=== PATIENT | male | born 1975 | race Caucasian/White ===

== ENCOUNTER 2024-01-07 17:11 | Inpatient (IN) ==
--- NOTE | 2024-01-07 17:31 | Emergency Department Note ---
Impression & Plan Stroke-like symptoms, Acute left-sided weakness, Chest pain, Sinus tachycardia ED Provider Note NAME: SAMMIE [id number] ZARINA AGE: 48 SEX: M : 1975 ARRIVES VIA: Ambulance INFORMANT: Patient, EMS ED PROVIDER(S): Mathew Dhillon DO CHIEF COMPLAINT: Strokelike symptoms HPI: The patient is a 48-year-old male who presented to the emergency department with strokelike symptoms. [facility] The patient went to take a nap at approximately noon today. He was in his normal state of health but he did state that he had somewhat of a headache. The patient also has chest pain that has had for many months. It is intermittent but he did notice he had chest pain on the left side today. The patient denies having any nausea or vomiting. He does complain of an allover headache but when he awoke from his nap he realized he had decreased sensation and weakness in his left side. The patient was seen at the [facility]. 911 was called. The patient arrived via ambulance. I did receive a prehospital notification about the patient. He was normotensive and tachycardic. He was treated with 4 baby aspirin per protocol prior to arrival. The patient states he has no change in his symptoms ROS: See above HPI for pertinent positives & negatives. A total of 10 systems reviewed and were otherwise negative. PAST MEDICAL HISTORY: See Below PAST SURGICAL HISTORY: See Below FAMILY HISTORY: See Below SOCIAL HISTORY: See Below HOME MEDICATIONS: See Below ALLERGIES: See Below VITALS: See Below PHYSICAL EXAMINATION: GENERAL: Patient is awake alert in no acute distress patient is resting comfortably and showing no signs of anxiety EYES: The conjunctivae are clear. The pupils are round and reactive. EARS, NOSE, MOUTH AND THROAT: The nose is without any evidence of any deformity. NECK: The neck is nontender and supple. RESPIRATORY: Normal respiratory effort is noted there is no evidence of wheezing rhonchi or rales CARDIOVASCULAR: Regular rate and rhythm noted there no murmurs rubs or gallops normal S1 normal S2. GASTROINTESTINAL: The abdomen is soft. Abdomen is nontender. MUSCULOSKELETAL/EXTREMITIES: There is no evidence of gross deformity full range of motion is noted in the hips and shoulders. SKIN: There is no obvious evidence of any rash. There are no petechiae, pallor or cyanosis noted. NEUROLOGIC: Patient is awake alert and oriented x3. Speech was clear. There was a left-sided facial droop which seems to involve the left side of the forehead. Outboard System Operator strength was diminished in the left hand compared to the right. The patient is unable to lift the left leg off the bed. The patient describes decreased sensation in the left side including left upper and lower extremities. MEDICAL DECISION MAKING: The patient is a 48-year-old male who presented to the emergency department for an evaluation of strokelike symptoms. [facility] His last known well time was initially reported as 3 PM however the patient states he went to his room to take a nap at around noon. The patient complained of headache as well as chest pain. His exam was consistent with left-sided weakness however his exam was somewhat intermittent and the patient was felt to have waxing and waning of symptoms. It is unclear if the patient was fully compliant with the exam. I discussed the patient's laboratory and radiographic studies with him. The patient was evaluated by the [facility] neurologist with [facility]. I [facility] the [facility]'s [facility]. They have agreed to evaluate the patient in the emergency department for further management and disposition. Triage Nursing notes reviewed. Prior medical records reviewed Vital Signs: reviewed and remarkable for sinus tachycardia. Differential diagnosis: Infection, dehydration, metabolic abnormality, hypo/hyperglycemia, electrolyte disturbance, anemia, hypoxia, cardiac sources, intracerebral event, toxicologic, neurologic, as well as other pathologies. ER treatment provided: See below Diagnostics interpreted by me: ECG: EKG was obtained in the emergency department. My interpretation is sinus tachycardia 127 bpm. There is no ectopy. Nonspecific ST segment abnormalities are noted. This was compared to a tracing from January 18, 2024. No changes were noted Cardiac Monitoring: An order was placed for continuous cardiac monitoring. The monitor shows a rate of 110 bpm with sinus tachycardia Laboratory studies: As stated above and show below. Imaging studies: See below. Radiographic imaging was reviewed by myself Consultation(s): I discussed this case with Dr. Henry who is on for [facility]. I discussed this case with Dr. Samuel who is [facility] ED COURSE: Procedures: none Critical Care: I have personally spent greater than 45 minutes of critical care time in the direct management of this patient. This includes bedside care, interpretation of diagnostic studies, and testing, discussion with consultants, patient, and family members, and other required patient management activities. This 45 minutes is in excess of all separately billable procedures. Past Med/Surg History Medical History COPD (chronic obstructive pulmonary disease) Social History Smoking Status: Never smoker Preferred Language: Citizen Of [place] Feels Safe at Home: Yes Allergies Allergies Allergy/AdvReac Type Severity Reaction Status Date / Time aripiprazole [From Abilify] Allergy Unknown ON SCI Verified 01/07/24 19:09 [facility] pollen extracts Allergy Unknown ON SCI Verified 01/07/24 19:09 [facility] MED LIST Home Meds Home Medications Medication Instructions Recorded Confirmed metoprolol tartrate 25 mg tablet 25 mg PO DAILY 10/26/23 01/07/24 hydroxyzine pamoate 50 mg capsule 50 mg PO BID 10/27/23 01/07/24 levalbuterol tartrate 45 2 inh inhalation QID PRN Shortness 12/19/23 01/07/24 mcg/actuation aerosol inhaler Of Breath Or Wheezing (Xopenex HFA) lisinopril 10 mg tablet 10 mg PO DAILY 12/19/23 01/07/24 pregabalin 150 mg capsule (Lyrica) 150 mg PO BID 12/19/23 01/07/24 terbinafine HCl 1 % topical cream 1 applic topical BID 12/19/23 01/07/24 trazodone 100 mg tablet 100 mg PO HS 12/19/23 01/07/24 venlafaxine 150 mg 150 mg PO DAILY 12/19/23 01/07/24 capsule,extended release 24 hr (Effexor XR) Fluticasone Nasal Spr 0.05% 1 spray intranasal BID 01/07/24 01/07/24 fluticasone 500 mcg-salmeterol 50 1 inh inhalation BID 01/07/24 01/07/24 mcg/dose blistr powdr for inhalation (Wixela Inhub) Results & Data (ED) Vital Signs Vital Signs - 24 hr 01/07/24 17:29 01/07/24 17:30 01/07/24 17:30 Temperature Temperature Source Pulse Rate 130 H 130 H Pulse Rate [Apical] Pulse Rate from SpO2 Sensor 130 H Respiratory Rate 21 Blood Pressure 127/65 Blood Pressure [Right Arm] Blood Pressure Mean 76 Blood Pressure Mean [Right Arm] Pulse Oximetry 95 Oxygen Delivery Method Sepsis Recent Fever Within 48 Hours Sepsis New/Unexplained Change in Mental Status Sepsis Action Taken by Nursing 01/07/24 17:31 01/07/24 17:34 01/07/24 17:34 Temperature 36.7 C Temperature Source Oral Pulse Rate 130 H 126 H Pulse Rate [Apical] Pulse Rate from SpO2 Sensor Respiratory Rate 24 Blood Pressure 127/65 Blood Pressure [Right Arm] Blood Pressure Mean 85 Blood Pressure Mean [Right Arm] Pulse Oximetry 96 Oxygen Delivery Method Room Air Room Air Sepsis Recent Fever Within 48 Hours No Sepsis New/Unexplained Change in Mental Status No Sepsis Action Taken by Nursing Physician Notified 01/07/24 17:40 01/07/24 17:47 01/07/24 17:47 Temperature Temperature Source Pulse Rate 124 H 123 H Pulse Rate [Apical] Pulse Rate from SpO2 Sensor 125 H 124 H Respiratory Rate 19 24 Blood Pressure 115/65 Blood Pressure [Right Arm] Blood Pressure Mean 73 Blood Pressure Mean [Right Arm] Pulse Oximetry 95 97 Oxygen Delivery Method Sepsis Recent Fever Within 48 Hours Sepsis New/Unexplained Change in Mental Status Sepsis Action Taken by Nursing 01/07/24 17:50 01/07/24 17:52 01/07/24 18:00 Temperature Temperature Source Pulse Rate 123 H Pulse Rate [Apical] 121 H Pulse Rate from SpO2 Sensor 124 H Respiratory Rate 18 18 Blood Pressure 109/67 Blood Pressure [Right Arm] 115/65 Blood Pressure Mean 85 Blood Pressure Mean [Right Arm] 81 Pulse Oximetry 95 95 Oxygen Delivery Method Room Air Sepsis Recent Fever Within 48 Hours Sepsis New/Unexplained Change in Mental Status Sepsis Action Taken by Nursing 01/07/24 18:00 01/07/24 18:10 01/07/24 18:15 Temperature Temperature Source Pulse Rate 121 H 120 H Pulse Rate [Apical] Pulse Rate from SpO2 Sensor 121 H 120 H Respiratory Rate 21 Blood Pressure 107/72 Blood Pressure [Right Arm] Blood Pressure Mean 95 Blood Pressure Mean [Right Arm] Pulse Oximetry 93 94 Oxygen Delivery Method Sepsis Recent Fever Within 48 Hours Sepsis New/Unexplained Change in Mental Status Sepsis Action Taken by Nursing 01/07/24 18:15 01/07/24 18:20 01/07/24 18:30 Temperature Temperature Source Pulse Rate 122 H 122 H Pulse Rate [Apical] Pulse Rate from SpO2 Sensor 122 H 122 H Respiratory Rate 21 24 Blood Pressure 119/74 Blood Pressure [Right Arm] Blood Pressure Mean 83 Blood Pressure Mean [Right Arm] Pulse Oximetry 95 97 Oxygen Delivery Method Sepsis Recent Fever Within 48 Hours Sepsis New/Unexplained Change in Mental Status Sepsis Action Taken by Nursing 01/07/24 18:30 01/07/24 18:40 Temperature Temperature Source Pulse Rate 116 H 116 H Pulse Rate [Apical] Pulse Rate from SpO2 Sensor 116 H 117 H Respiratory Rate 17 15 Blood Pressure Blood Pressure [Right Arm] Blood Pressure Mean Blood Pressure Mean [Right Arm] Pulse Oximetry 94 95 Oxygen Delivery Method Sepsis Recent Fever Within 48 Hours Sepsis New/Unexplained Change in Mental Status Sepsis Action Taken by Custodial Medications Current Medication List: was personally reviewed by me Laboratory Data Attestation: I reviewed the patient's lab results. 01/07/24 20:47 01/07/24 17:31 Lab Results 01/07/24 01/07/24 01/07/24 Range/Units 17:31 17:35 17:40 WBC 10.44 (4.8-10.8) K/ul RBC 4.75 (4.70-6.10) M/uL Hgb 13.6 L (14.0-18.0) g/dl POC Hgb 13.6 L (14.0-18.0) g/dl Hct 41.6 L (42.0-52.0) % POC Hct 40 L (42-52) % MCV 87.6 (80.0-100.0) fL MCH 28.6 (25.0-34.0) pg MCHC 32.7 (32.0-36.0) g/dL RDW Std Deviation 41.4 (36.4-46.3) fL RDW Coeff of Boris 12.9 (11.5-14.5) % Plt Count 258 (130-400) K/uL MPV 9.4 (9.4-12.4) fL Immature Gran % (Auto) 0.6 % Neut % (Auto) 91.1 % Lymph % (Auto) 2.5 % [facility] % (Auto) 5.6 % Eos % (Auto) 0.0 % Baso % (Auto) 0.2 % Reticulocyte % (Auto) (0.50-2.00) % Neut # (Auto) 9.52 H (1.40-6.50) K/uL Lymph # (Auto) 0.26 L (1.20-3.40) K/uL [facility] # (Auto) 0.58 (0.11-0.59) K/uL Eos # (Auto) 0.00 (0.00-0.50) K/uL Baso # (Auto) 0.02 (0.00-0.20) K/uL Reticulocyte # (0.020-0.100) 10^6/uL Immature Gran # (Auto) 0.06 (0.01-0.20) K/uL PT 11.4 (9.0-12.0) Seconds INR 1.0 (0.9-1.1) APTT 26 (21-31) Seconds PTT Ratio 0.9 POC Sodium 141 (135-144) mmol/L Sodium 139 (136-145) mmol/L POC Potassium 3.4 (3.3-5.0) mmol/L Potassium 3.4 L (3.5-5.1) mmol/L POC Chloride 103 (101-112) mmol/L Chloride 106 (98-107) mmol/L Carbon Dioxide 21 (21-32) mmol/L POC Total CO2 20 L (24-31) mmol/L Anion Gap 12 H (3-11) POC Anion Gap 23.0 (16-25) mmol/L POC BUN 11 (7-18) mg/dl BUN 13 (6-23) mg/dl Creatinine 1.24 (0.6-1.4) mg/dl POC Creatinine 1.2 (0.6-1.3) mg/dl Est Cr Clr Drug Dosing 92.9 ml/min Est GFR ( Amer) 80.3 ml/min Est GFR (Non-Af Amer) 69.3 ml/min BUN/Creatinine Ratio 10.5 (10-20) Glucose 129 H (70-99(Fasting)) mg/dl POC Glucose 122 H (70-99) mg/dl POC Glucose (other) 122 H (70-99) mg/dl Estimat Average Glucose 123 mg/dl Hemoglobin A1c 5.9 H (4.5-5.6) % Lactate (0.4-2.0) mmol/L Calcium 8.8 (8.6-10.3) mg/dl POC Ioniz Calcium Dez 1.18 (1.12-1.32) mmol/l Magnesium 1.8 (1.7-2.4) mg/dl Iron (35-175) mcg/dl Transferrin (200-360) mg/dl Ferritin (8-388) ng/ml Total Bilirubin 0.3 (0.2-1.0) mg/dl AST 14 (13-39) U/L ALT 23 (7-52) U/L Alkaline Phosphatase 63 (34-104) U/L Troponin I High Sens 8.9 (0-20) pg/ml Total Protein 6.2 (6.0-8.3) gm/dl Albumin 3.9 (3.4-5.0) gm/dl Globulin 2.3 L (2.5-4.0) gm/dl Albumin/Globulin Ratio 1.7 (0.9-2) Vitamin B12 (180-914) pg/ml Folate (>5.38) ng/ml TSH 0.316 (0.300-4.500) uIu/ml 01/07/24 Range/Units 20:47 WBC (4.8-10.8) K/ul RBC (4.70-6.10) M/uL Hgb 13.3 L (14.0-18.0) g/dl POC Hgb (14.0-18.0) g/dl Hct 39.4 L (42.0-52.0) % POC Hct (42-52) % MCV (80.0-100.0) fL MCH (25.0-34.0) pg MCHC (32.0-36.0) g/dL RDW Std Deviation (36.4-46.3) fL RDW Coeff of Boris (11.5-14.5) % Plt Count (130-400) K/uL MPV (9.4-12.4) fL Immature Gran % (Auto) % Neut % (Auto) % Lymph % (Auto) % [facility]. [facility] % (Auto) % Eos % (Auto) % Baso % (Auto) % Reticulocyte % (Auto) 1.60 (0.50-2.00) % Neut # (Auto) (1.40-6.50) K/uL Lymph # (Auto) (1.20-3.40) K/uL [facility] # (Auto) (0.11-0.59) K/uL Eos # (Auto) (0.00-0.50) K/uL Baso # (Auto) (0.00-0.20) K/uL Reticulocyte # 0.070 (0.020-0.100) 10^6/uL Immature Gran # (Auto) (0.01-0.20) K/uL PT (9.0-12.0) Seconds INR (0.9-1.1) APTT (21-31) Seconds PTT Ratio POC Sodium (135-144) mmol/L Sodium (136-145) mmol/L POC Potassium (3.3-5.0) mmol/L Potassium (3.5-5.1) mmol/L POC Chloride (101-112) mmol/L Chloride (98-107) mmol/L Carbon Dioxide (21-32) mmol/L POC Total CO2 (24-31) mmol/L Anion Gap (3-11) POC Anion Gap (16-25) mmol/L POC BUN (7-18) mg/dl BUN (6-23) mg/dl Creatinine (0.6-1.4) mg/dl POC Creatinine (0.6-1.3) mg/dl Est Cr Clr Drug Dosing ml/min Est GFR ( Amer) ml/min Est GFR (Non-Af Amer) ml/min BUN/Creatinine Ratio (10-20) Glucose (70-99(Fasting)) mg/dl POC Glucose (70-99) mg/dl POC Glucose (other) (70-99) mg/dl Estimat Average Glucose mg/dl Hemoglobin A1c (4.5-5.6) % Lactate 4.1 H* (0.4-2.0) mmol/L Calcium (8.6-10.3) mg/dl POC Ioniz Calcium Dez (1.12-1.32) mmol/l Magnesium (1.7-2.4) mg/dl Iron 33 L (35-175) mcg/dl Transferrin 213 (200-360) mg/dl Ferritin 103.2 (8-388) ng/ml Total Bilirubin (0.2-1.0) mg/dl AST (13-39) U/L ALT (7-52) U/L Alkaline Phosphatase (34-104) U/L Troponin I High Sens (0-20) pg/ml Total Protein (6.0-8.3) gm/dl Albumin (3.4-5.0) gm/dl Globulin (2.5-4.0) gm/dl Albumin/Globulin Ratio (0.9-2) Vitamin B12 193 (180-914) pg/ml Folate > 22.30 (>5.38) ng/ml TSH (0.300-4.500) uIu/ml Administered Medications Discontinued Medications Acetaminophen (Acetaminophen 1000 Mg/100 Ml Iv) Confirm Administered Dose 1,000 mg IV .STK-MED ONE Stop: 01/07/24 17:48 Last Admin: 01/07/24 18:01 Dose: Not Given Documented By: KT Acetaminophen (Ofirmev) 1,000 mg in 100 mls @ 400 mls/hr IV NOW STA Stop: 01/07/24 18:09 Last Infusion: 01/07/24 18:38 Dose: Infused Documented By: Admin: 01/07/24 18:00 Dose: 400 mls/hr Documented By: KT Sodium Chloride (Nss) 1,000 mls @ 999 mls/hr IV .Q1H1M ONE Stop: 01/07/24 19:32 Last Infusion: 01/07/24 19:50 Dose: Infused Documented By: Admin: 01/07/24 18:49 Dose: 999 mls/hr Documented By: KT Magnesium Sulfate/Dextrose (Magnesium Sulfate / D5w) 1 gm in 100 mls @ 50 mls/hr IV ONE ONE Stop: 01/07/24 21:38 Last Admin: 01/07/24 20:07 Dose: 50 mls/hr Documented By: HB Potassium Chloride/Sodium Chloride (Normal Saline W/20 Meq Kcl) 20 meq in 1,000 mls @ 200 mls/hr IV .Q5H ONE; Protocol Stop: 01/08/24 01:35 Last Admin: 01/07/24 21:46 Dose: Not Given Documented By: HB Potassium Chloride (Potassium Chloride Crtab 20 Meq Tabcr) 40 meq PO NOW STA Stop: 01/07/24 19:39 Last Admin: 01/07/24 20:07 Dose: 40 meq Documented By: HB Imaging Data Attestation: I personally reviewed and interpreted this imaging study as follows: My Impression: CT of the brain was obtained in the emergency department. My interpretation is no intracranial hemorrhage or mass effect, final report below. CT angiogram of the chest was obtained. My interpretation is no free air or signs of pulmonary infiltrate, final report below. Radiologist's Impression: Chest CTA 01/07/24 17:08 CT ANGIOGRAM OF THE CHEST CLINICAL HISTORY: Atypical chest pain. Stroke like symptoms. COMPARISON STUDY: Chest CT dated 12/19/2023. TECHNIQUE: Following the IV administration of 119 cc of Optiray 320, CT angiogram of the chest was performed from the thoracic inlet to the upper abdomen utilizing the dissection protocol. Images are reviewed in the axial, sagittal, and coronal planes. 3-D MIPS images are created and assessed. IV contrast was administered without complication. A dose lowering technique was utilized adhering to the principles of ALARA. There is streak artifact from the arms which could not be elevated above the chest. There is also motion artifact. FINDINGS: Thyroid: Imaged portions of the thyroid gland are normal in size and attenuation. Thoracic aorta: The thoracic aorta is normal in caliber and demonstrates standard 3-vessel arch anatomy. No dissection is seen. The arch vessels are widely patent. Pulmonary vasculature: The pulmonary trunk is normal in caliber. There is no evidence of pulmonary embolus in the main, lobar, or proximal segmental pulmonary arteries. Evaluation of the peripheral branches is significantly degraded by motion artifact. Heart: The heart is normal in size and without pericardial effusion. Lungs and pleural spaces: Evaluation of the lung parenchyma is degraded by motion artifact. There is dependent atelectasis. No airspace consolidation or pleural effusion is identified. A 4 mm right middle lobe pulmonary nodule on image #88 and 3 mm left basilar nodules on images #82 and #85 are unchanged. Mediastinum: There are numerous mildly enlarged mediastinal lymph nodes which measure up to 11 mm short axis. These are similar to previous. Nataly: Mildly enlarged hilar nodes are unchanged and measure up to 14 mm in short axis. Axillae: There is no axillary lymphadenopathy. Upper abdomen: There is a small hiatal hernia. A 1.8 cm cyst is noted in the right hepatic lobe. The liver appears steatotic. Skeletal structures: No lytic or blastic bony lesions are seen. There are numerous chronic/healed right posterior rib fractures. There are subacute appearing left lateral rib fractures. IMPRESSION: 1. Normal CT angiogram of the thoracic aorta. 2. There is no airspace consolidation or pleural effusion. 3. Hepatic steatosis. 4. Mildly enlarged mediastinal and hilar lymph nodes are nonspecific and similar to previous. 5. Additional findings as above. ACT 112: Negative or not required by law. Electronically signed by: Hunter Bowden M.D. 01/07/2024 6:[address] 01/07/24 17:[address] OF THE BRAIN; CT ANGIOGRAM OF THE BRAIN; CT ANGIOGRAM OF THE NECK CLINICAL HISTORY: Neurological deficit. Stroke like symptoms. COMPARISON STUDY: No priors. TECHNIQUE: Unenhanced axial CT scan of the brain is performed. Subsequently, following the IV administration of 119 of Optiray 320, CT angiogram of the head and neck was performed from the aortic arch to the vertex. Images are reviewed in the axial, sagittal, and coronal planes. 3-D MIPS images are created and assessed. IV contrast was administered without complication. All measurements were calculated based on NASCET criteria. A dose lowering technique was utilized adhering to the principles of ALARA. CT DOSE: 2037.25 mGy.cm FINDINGS: Brain parenchyma: There is a 12 mm chronic-appearing lacunar infarct centered in the left basal ganglia seen on image #11. There is no hemorrhage, mass effect, or evidence of acute territorial ischemia by CT criteria. There is no evidence of enhancing mass lesion on the angiogram phase images. The ventricles, sulci, and cisterns are normal in configuration. Roe-white matter differentiation is preserved. No extra-axial fluid collection is seen. Thoracic aorta: Visualized portions of the thoracic aorta are normal in caliber. The aortic arch demonstrates standard 3-vessel anatomy. Right carotid arterial system: The right common carotid artery is widely patent, as are the right internal and external carotid arteries. Left carotid arterial system: The left common carotid artery is widely patent, as are the left internal and external carotid arteries. Vertebral arteries: The vertebral arteries are widely patent bilaterally and mild left-sided dominance. Subclavian arteries: Widely patent bilaterally. Intracranial vasculature: The internal carotid arteries are patent at the skull base, as are the anterior and middle cerebral arteries bilaterally. The vertebrobasilar system and posterior cerebral arteries are widely patent. The left vertebral artery is dominant. There is a left posterior communicating artery. There is no aneurysm, high-grade stenosis, or focal vessel cut off seen throughout the intracranial circulation. Jugular veins: Patent bilaterally. Dural sinuses: Patent. Lung apices: Partially visualized upper lobe lung parenchyma appears clear. Soft tissues: The visualized pharyngeal soft tissues are normal in appearance noting angiographic phase technique. The oropharyngeal airway appears widely patent. The salivary and thyroid glands are normal in appearance. No cervical lymphadenopathy is seen. Skeletal structures: The calvarium appears intact. The cervical spine is maintained noting multilevel spondylosis. Orbits: The bony orbits are intact. Orbital contents are normal as visualized. Sinuses and mastoids: The paranasal sinuses are clear. The mastoid air cells are well pneumatized. IMPRESSION: 1. There is no hemorrhage, mass effect, or evidence of acute territorial ischemia by CT criteria. 2. There is a 12 mm chronic-appearing lacunar infarct centered in the left basal ganglia. Correlate with the neurological history. If warranted this could be further assessed with MRI. 3. Unremarkable CT angiogram of the brain. 4. Unremarkable CT angiogram of the neck. ACT 112: Negative or not required by law. Electronically signed by: Hunter Bowden M.D. 01/07/2024 5:45 PM Head CTA 01/07/24 17:[address] OF THE BRAIN; CT ANGIOGRAM OF THE BRAIN; CT ANGIOGRAM OF THE NECK CLINICAL HISTORY: Neurological deficit. Stroke like symptoms. COMPARISON STUDY: No priors. TECHNIQUE: Unenhanced axial CT scan of the brain is performed. Subsequently, following the IV administration of 119 of Optiray 320, CT angiogram of the head and neck was performed from the aortic arch to the vertex. Images are reviewed in the axial, sagittal, and coronal planes. 3-D MIPS images are created and assessed. IV contrast was administered without complication. All measurements were calculated based on NASCET criteria. A dose lowering technique was utilized adhering to the principles of ALARA. CT DOSE: 2037.25 mGy.cm FINDINGS: Brain parenchyma: There is a 12 mm chronic-appearing lacunar infarct centered in the left basal ganglia seen on image #11. There is no hemorrhage, mass effect, or evidence of acute territorial ischemia by CT criteria. There is no evidence of enhancing mass lesion on the angiogram phase images. The ventricles, sulci, and cisterns are normal in configuration. Roe-white matter differentiation is preserved. No extra-axial fluid collection is seen. Thoracic aorta: Visualized portions of the thoracic aorta are normal in caliber. The aortic arch demonstrates standard 3-vessel anatomy. Right carotid arterial system: The right common carotid artery is widely patent, as are the right internal and external carotid arteries. Left carotid arterial system: The left common carotid artery is widely patent, as are the left internal and external carotid arteries. Vertebral arteries: The vertebral arteries are widely patent bilaterally and mild left-sided dominance. Subclavian arteries: Widely patent bilaterally. Intracranial vasculature: The internal carotid arteries are patent at the skull base, as are the anterior and middle cerebral arteries bilaterally. The vertebrobasilar system and posterior cerebral arteries are widely patent. The left vertebral artery is dominant. There is a left posterior communicating artery. There is no aneurysm, high-grade stenosis, or focal vessel cut off seen throughout the intracranial circulation. Jugular veins: Patent bilaterally. Dural sinuses: Patent. Lung apices: Partially visualized upper lobe lung parenchyma appears clear. Soft tissues: The visualized pharyngeal soft tissues are normal in appearance noting angiographic phase technique. The oropharyngeal airway appears widely patent. The salivary and thyroid glands are normal in appearance. No cervical lymphadenopathy is seen. Skeletal structures: The calvarium appears intact. The cervical spine is maintained noting multilevel spondylosis. Orbits: The bony orbits are intact. Orbital contents are normal as visualized. Sinuses and mastoids: The paranasal sinuses are clear. The mastoid air cells are well pneumatized. IMPRESSION: 1. There is no hemorrhage, mass effect, or evidence of acute territorial ischemia by CT criteria. 2. There is a 12 mm chronic-appearing lacunar infarct centered in the left basal ganglia. Correlate with the neurological history. If warranted this could be further assessed with MRI. 3. Unremarkable CT angiogram of the brain. 4. Unremarkable CT angiogram of the neck. ACT 112: Negative or not required by law. Electronically signed by: Hunter Bowden M.D. 01/07/2024 5:45 PM Neck CTA 01/07/24 17:[address] OF THE BRAIN; CT ANGIOGRAM OF THE BRAIN; CT ANGIOGRAM OF THE NECK CLINICAL HISTORY: Neurological deficit. Stroke like symptoms. COMPARISON STUDY: No priors. TECHNIQUE: Unenhanced axial CT scan of the brain is performed. Subsequently, following the IV administration of 119 of Optiray 320, CT angiogram of the head and neck was performed from the aortic arch to the vertex. Images are reviewed in the axial, sagittal, and coronal planes. 3-D MIPS images are created and assessed. IV contrast was administered without complication. All measurements were calculated based on NASCET criteria. A dose lowering technique was utilized adhering to the principles of ALARA. CT DOSE: 2037.25 mGy.cm FINDINGS: Brain parenchyma: There is a 12 mm chronic-appearing lacunar infarct centered in the left basal ganglia seen on image #11. There is no hemorrhage, mass effect, or evidence of acute territorial ischemia by CT criteria. There is no evidence of enhancing mass lesion on the angiogram phase images. The ventricles, sulci, and cisterns are normal in configuration. Roe-white matter differentiation is preserved. No extra-axial fluid collection is seen. Thoracic aorta: Visualized portions of the thoracic aorta are normal in caliber. The aortic arch demonstrates standard 3-vessel anatomy. Right carotid arterial system: The right common carotid artery is widely patent, as are the right internal and external carotid arteries. Left carotid arterial system: The left common carotid artery is widely patent, as are the left internal and external carotid arteries. Vertebral arteries: The vertebral arteries are widely patent bilaterally and mild left-sided dominance. Subclavian arteries: Widely patent bilaterally. Intracranial vasculature: The internal carotid arteries are patent at the skull base, as are the anterior and middle cerebral arteries bilaterally. The vertebrobasilar system and posterior cerebral arteries are widely patent. The left vertebral artery is dominant. There is a left posterior communicating artery. There is no aneurysm, high-grade stenosis, or focal vessel cut off seen throughout the intracranial circulation. Jugular veins: Patent bilaterally. Dural sinuses: Patent. Lung apices: Partially visualized upper lobe lung parenchyma appears clear. Soft tissues: The visualized pharyngeal soft tissues are normal in appearance noting angiographic phase technique. The oropharyngeal airway appears widely patent. The salivary and thyroid glands are normal in appearance. No cervical lymphadenopathy is seen. Skeletal structures: The calvarium appears intact. The cervical spine is maintained noting multilevel spondylosis. Orbits: The bony orbits are intact. Orbital contents are normal as visualized. Sinuses and mastoids: The paranasal sinuses are clear. The mastoid air cells are well pneumatized. IMPRESSION: 1. There is no hemorrhage, mass effect, or evidence of acute territorial ischemia by CT criteria. 2. There is a 12 mm chronic-appearing lacunar infarct centered in the left basal ganglia. Correlate with the neurological history. If warranted this could be further assessed with MRI. 3. Unremarkable CT angiogram of the brain. 4. Unremarkable CT angiogram of the neck. ACT 112: Negative or not required by law. Electronically signed by: Hunter Bowden M.D. 01/07/2024 5:45 PM Brain MRI 01/07/24 18:27 MRI OF THE BRAIN WITHOUT IV CONTRAST CLINICAL HISTORY: Strokelike symptoms. Left arm and leg weakness. COMPARISON STUDY: CT of the brain dated 01/07/2024. TECHNIQUE: MRI of the brain was performed utilizing various T1 and T2-weighted sequences in the axial, sagittal, and coronal planes. IV contrast was not administered for this examination. FINDINGS: Brain parenchyma: A chronic lacunar infarct is noted in left basal ganglia. There is minimal microangiopathic disease. There is no hemorrhage or mass effect. There is no restricted diffusion to suggest acute ischemia. Roe-white matter differentiation is preserved. No extra-axial fluid collection is seen. The cerebellar tonsils are normal in configuration. Ventricles, sulci, and cisterns: Normal in configuration. Pituitary and sella: Unremarkable. Intracranial vasculature: Normal flow voids are maintained at the skull base. Orbits: The bony orbits are grossly intact. Orbital contents are normal in appearance. Sinuses and mastoids: Clear. Calvarium: Unremarkable. Cervical cord: Partially visualized cervical spinal cord is normal in morphology and signal intensity. IMPRESSION: No acute intracranial abnormality. ACT 112: Negative or not required by law. Electronically signed by: Hunter Bowden M.D. 01/07/2024 10:01 PM Discharge Plan Visit Data Chief Complaint: Stroke Alert Stated Complaint: Stroke ED Provider: Mathew Dhillon Discharge Problem: Stroke-like symptoms, Acute left-sided weakness, Chest pain, Sinus tachycardia Patient Disposition: Being Evaluated by Hospitalist Forms Stand Alone Forms: [facility] Pres[facility] Prescriptions: No Action metoprolol tartrate 25 mg Tablet 25 mg PO DAILY Rx Instructions: HOLD FOR BP <100/60 OR PULSE <60 hydroxyzine pamoate 50 mg Capsule 50 mg PO BID terbinafine HCl [Lamisil] 1 % Cream 1 applic TOPICAL BID venlafaxine [Effexor XR] 150 mg Capsule,Extended Release 24hr 150 mg PO DAILY trazodone 100 mg Tablet 100 mg PO HS lisinopril 10 mg Tablet 10 mg PO DAILY levalbuterol tartrate [Xopenex HFA] 45 mcg/actuation Hfa Aerosol Inhaler 2 inh INHALATION QID PRN (Reason: Shortness Of Breath Or Wheezing) pregabalin [Lyrica] 150 mg Capsule 150 mg PO BID fluticasone propion-salmeterol [Wixela Inhub] 500-50 mcg/dose Blister With Device 1 inh INHALATION BID Fluticasone Nasal Spr 0.05% 1 spray intranasal BID Referrals Referrals: Elvia CAVAZOS [Primary Care Provider] - Discharge Problem: Chest pain Qualifiers: Chest pain type: unspecified Qualified Code(s): R07.9 - Chest pain, unspecified
[2024-01-07 17:44] LABS: Hematocrit (blood only) 41.6 % (42.0-52.0); Hemoglobin 13.6 g/dl (14.0-18.0); Mean Corpuscular Hemoglobin 28.6 pg (25.0-34.0); Mean Corpuscular Hgb Conc 32.7 g/dL (32.0-36.0); Mean Corpuscular Volume 87.6 fL (80.0-100.0); Mean Platelet Volume 9.4 fL (9.4-12.4); Platelet Count 258 K/uL (130-400); RDW Coefficient of Variation 12.9 % (11.5-14.5); RDW Standard Deviation 41.4 fL (36.4-46.3); Red Blood Count 4.75 M/uL (4.70-6.10); White Blood Count 10.44 K/ul (4.8-10.8)
--- NOTE | 2024-01-07 17:47 | CT Scan Report ---
UNENHANCED CT OF THE BRAIN; CT ANGIOGRAM OF THE BRAIN; CT ANGIOGRAM OF THE NECK CLINICAL HISTORY: Neurological deficit. Stroke like symptoms. COMPARISON STUDY: No priors. TECHNIQUE: Unenhanced axial CT scan of the brain is performed. Subsequently, following the IV adminis tration of 119 of Optiray 320, CT angiogram of the head and neck was performed from the aortic arch t o the vertex. Images are reviewed in the axial, sagittal, and coronal planes. 3-D MIPS images are cre ated and assessed. IV contrast was administered without complication. All measurements were calculate d based on NASCET criteria. A dose lowering technique was utilized adhering to the principles of ALA RA. CT DOSE: 2037.25 mGy.cm FINDINGS: Brain parenchyma: There is a 12 mm chronic-appearing lacunar infarct centered in the left basal gangl ia seen on image #11. There is no hemorrhage, mass effect, or evidence of acute territorial ischemia by CT criteria. There is no evidence of enhancing mass lesion on the angiogram phase images. The vent ricles, sulci, and cisterns are normal in configuration. Roe-white matter differentiation is preserv ed. No extra-axial fluid collection is seen. Thoracic aorta: Visualized portions of the thoracic aorta are normal in caliber. The aortic arch demo nstrates standard 3-vessel anatomy. Right carotid arterial system: The right common carotid artery is widely patent, as are the right int ernal and external carotid arteries. Left carotid arterial system: The left common carotid artery is widely patent, as are the left internal grinder al and external carotid arteries. Vertebral arteries: The vertebral arteries are widely patent bilaterally and mild left-sided dominanc e. Subclavian arteries: Widely patent bilaterally. Intracranial vasculature: The internal carotid arteries are patent at the skull base, as are the ante rior and middle cerebral arteries bilaterally. The vertebrobasilar system and posterior cerebral xenia butch are widely patent. The left vertebral artery is dominant. There is a left posterior communicatin g artery. There is no aneurysm, high-grade stenosis, or focal vessel cut off seen throughout the intr acranial circulation. Jugular veins: Patent bilaterally. Dural sinuses: Patent. Lung apices: Partially visualized upper lobe lung parenchyma appears clear. Soft tissues: The visualized pharyngeal soft tissues are normal in appearance noting angiographic pha se technique. The oropharyngeal airway appears widely patent. The salivary and thyroid glands are nor mal in appearance. No cervical lymphadenopathy is seen. Skeletal structures: The calvarium appears intact. The cervical spine is maintained noting multilevel spondylosis. Orbits: The bony orbits are intact. Orbital contents are normal as visualized. Sinuses and mastoids: The paranasal sinuses are clear. The mastoid air cells are well pneumatized. IMPRESSION: 1. There is no hemorrhage, mass effect, or evidence of acute territorial ischemia by CT criteria. 2. There is a 12 mm chronic-appearing lacunar infarct centered in the left basal ganglia. Correlate w ith the neurological history. If warranted this could be further assessed with MRI. 3. Unremarkable CT angiogram of the brain. 4. Unremarkable CT angiogram of the neck. ACT 112: Negative or not required by law. Electronically signed by: Hunter Bowden M.D. 01/07/2024 5:45 PM
[2024-01-07 17:53] LABS: iSTAT Creatinine 1.2 mg/dl (0.6-1.3); iSTAT Hemoglobin 13.6 g/dl (14.0-18.0); iSTAT Ionized Calcium 1.18 mmol/l (1.12-1.32); iSTAT Potassium 3.4 mmol/L (3.3-5.0)
[2024-01-07 17:55] LABS: Partial Thromboplastin Ratio 0.9; Partial Thromboplastin Time 26 Seconds (21-31); Prothrombin Time 11.4 Seconds (9.0-12.0)
[2024-01-07 17:59] LABS: Albumin Level 3.9 gm/dl (3.4-5.0); Bilirubin,Total 0.3 mg/dl (0.2-1.0); Calcium 8.8 mg/dl (8.6-10.3); Magnesium 1.8 mg/dl (1.7-2.4); Potassium 3.4 mmol/L (3.5-5.1)
[2024-01-07] MEDS: ACETAMINOPHEN 1,000 MG/100 ML VIAL IV STA (18:00)
[2024-01-07] MEDS: ACETAMINOPHEN 1000 MG/100 ML IV IV ONE (18:01)
[2024-01-07 18:03] LABS: Basophils # (auto) 0.02 K/uL (0.00-0.20); Basophils % (auto) 0.2 %; Immature Granulocytes # (auto) 0.06 K/uL (0.01-0.20); Immature Granulocytes % (auto) 0.6 %; Lymphocytes # (auto) 0.26 K/uL (1.20-3.40); Lymphocytes % (auto) 2.5 %; Monocytes # (auto) 0.58 K/uL (0.11-0.59); Monocytes % (auto) 5.6 %; Neutrophils # (auto) 9.52 K/uL (1.40-6.50); Neutrophils % (auto) 91.1 %
[2024-01-07 18:04] LABS: Albumin Globulin Ratio 1.7 (0.9-2); BUN Creatinine Ratio 10.5 (10-20); Creatinine Clr Calc Pharmacy 92.9 ml/min; Est GFR (African American) 80.3 ml/min; Est GFR (Non-African American) 69.3 ml/min; Globulin 2.3 gm/dl (2.5-4.0); Total Protein 6.2 gm/dl (6.0-8.3)
[2024-01-07 18:10] LABS: Troponin I High Sensitivity 8.9 pg/ml (0-20)
[2024-01-07] MEDS: SODIUM CHLORIDE 0.9% 1,000 ML IV ONE (18:49)
--- NOTE | 2024-01-07 19:00 | CT Scan Report ---
CT ANGIOGRAM OF THE CHEST CLINICAL HISTORY: Atypical chest pain. Stroke like symptoms. COMPARISON STUDY: Chest CT dated 12/19/2023. TECHNIQUE: Following the IV administration of 119 cc of Optiray 320, CT angiogram of the chest was pe rformed from the thoracic inlet to the upper abdomen utilizing the dissection protocol. Images are re viewed in the axial, sagittal, and coronal planes. 3-D MIPS images are created and assessed. IV contr ast was administered without complication. A dose lowering technique was utilized adhering to the pr inciples of ALA. There is streak artifact from the arms which could not be elevated above the chest . There is also motion artifact. FINDINGS: Thyroid: Imaged portions of the thyroid gland are normal in size and attenuation. Thoracic aorta: The thoracic aorta is normal in caliber and demonstrates standard 3-vessel arch anato my. No dissection is seen. The arch vessels are widely patent. Pulmonary vasculature: The pulmonary trunk is normal in caliber. There is no evidence of pulmonary em bolus in the main, lobar, or proximal segmental pulmonary arteries. Evaluation of the peripheral bran ches is significantly degraded by motion artifact. Heart: The heart is normal in size and without pericardial effusion. Lungs and pleural spaces: Evaluation of the lung parenchyma is degraded by motion artifact. There is dependent atelectasis. No airspace consolidation or pleural effusion is identified. A 4 mm right midd le lobe pulmonary nodule on image #88 and 3 mm left basilar nodules on images #82 and #85 are unchang ed. Mediastinum: There are numerous mildly enlarged mediastinal lymph nodes which measure up to 11 mm mynor rt axis. These are similar to previous. Nataly: Mildly enlarged hilar nodes are unchanged and measure up to 14 mm in short axis. Axillae: There is no axillary lymphadenopathy. Upper abdomen: There is a small hiatal hernia. A 1.8 cm cyst is noted in the right hepatic lobe. The liver appears steatotic. Skeletal structures: No lytic or blastic bony lesions are seen. There are numerous chronic/healed rig ht posterior rib fractures. There are subacute appearing left lateral rib fractures. IMPRESSION: 1. Normal CT angiogram of the thoracic aorta. 2. There is no airspace consolidation or pleural effusion. 3. Hepatic steatosis. 4. Mildly enlarged mediastinal and hilar lymph nodes are nonspecific and similar to previous. 5. Additional findings as above. ACT 112: Negative or not required by law. Electronically signed by: Hunter Bowden M.D. 01/07/2024 6:58 PM
[2024-01-07] MEDS: MAGNESIUM SULFATE / D5W 1 GM/100 ML BAG IV ONE (20:07)
[2024-01-07] MEDS: POTASSIUM CHLORIDE CRTAB 20 MEQ TABCR PO STA (20:07)
[2024-01-07 20:14] LABS: Estimated Average Glucose 123 mg/dl; Hemoglobin A1C 5.9 % (4.5-5.6)
--- NOTE | 2024-01-07 20:38 | History & Physical Report ---
Date of Service January 07, 2024 Assessment & Plan (1) Acute left-sided weakness: Plan: Old CVA on CAT scan Rule out malingering/conversion reaction given recurrent ER visits Patient seems fixated with inability to get testosterone injections from provider at correctional facility. ER provider mentioned some inconsistencies during neurologic exams done at the ER during stroke alert. hypertension, BP on the lower side hyperlipidemia, as per records, not on statin Rx Chronic chest pain, outpatient [facility] cardiology eval contemplated COPD, not in acute exacerbation ADHD/anxiety/mood disorder, patient markedly anxious during exam New onset anemia, patient without overt bleed symptoms, refusing rectal exam Hyperglycemia rule out DM OBS Medical telemetry Neurochecks Aspirin and statin for secondary stroke prevention given old CVA on CAT scan MRI brain, TTE for stroke workup Neurology consult Re: Left-sided weakness Check lipid profile and hemoglobin A1c IVF, appropriate to hold BP meds for now given borderline BP May benefit from Psychiatric evaluation if organic cause for left-sided weakness ruled out Anemia workup DVT prophylaxis. [employer] subcu Full code Text document was generated using [employer] voice recognition software. It may contain grammatical or spelling errors. Kindly contact undersigned for clarification of any documentation item in question. History of Present Illness Chief Complaint: Left-sided weakness Primary Care Provider: MACY Angulo History obtained from patient and records. Medical history significant for hypertension, hyperlipidemia, COPD, GERD, chronic pain, low testosterone as per patient, ADHD, Peyronie's disease, anxiety/mood disorder. Three ER visits since September 2023 for daily chest pain symptoms which patient attributes to [facility] provider not prescribing testosterone which he has been on for years before incarceration Outpatient [facility] cardiology eval contemplated. Patient woke up this afternoon with left-sided weakness and blurred vision left eye. Left side trembling as well. Complaining of right-sided headache symptoms. No prior episodes as per patient. Usual chest pain complaints. Patient denies abdominal pain/black, bloody stools/hematuria symptoms Aspirin given prior to ER transport. Stroke alert called upon arrival at the ER. Medical History as above Surgical History : None Family History : Heart disease, DM Personal/Social history : Non-smoker, no EtOH intake, prior work as an EMT Allergies Allergy/AdvReac Type Severity Reaction Status Date / Time aripiprazole [From Abilify] Allergy Unknown ON SCI Verified 01/07/24 19:09 [facility] MED LIST pollen extracts Allergy Unknown ON [facility] Verified 01/07/24 19:09 [facility] MED LIST Home Medications Medication Instructions Recorded Confirmed Type metoprolol tartrate 25 mg tablet 25 mg PO DAILY 10/26/23 01/07/24 History hydroxyzine pamoate 50 mg capsule 50 mg PO BID 10/27/23 01/07/24 History levalbuterol tartrate 45 2 inh inhalation QID PRN Shortness 12/19/23 01/07/24 History mcg/actuation aerosol inhaler Of Breath Or Wheezing (Xopenex HFA) lisinopril 10 mg tablet 10 mg PO DAILY 12/19/23 01/07/24 History pregabalin 150 mg capsule (Lyrica) 150 mg PO BID 12/19/23 01/07/24 History terbinafine HCl 1 % topical cream 1 applic topical BID 12/19/23 01/07/24 History trazodone 100 mg tablet 100 mg PO HS 12/19/23 01/07/24 History venlafaxine 150 mg 150 mg PO DAILY 12/19/23 01/07/24 History capsule,extended release 24 hr (Effexor XR) Fluticasone Nasal Spr 0.05% 1 spray intranasal BID 01/07/24 01/07/24 History fluticasone 500 mcg-salmeterol 50 1 inh inhalation BID 01/07/24 01/07/24 History mcg/dose blistr powdr for inhalation (Wixela Inhub) Past Med/Surg History Medical History COPD (chronic obstructive pulmonary disease) Social History Smoking Status: Never smoker Second Hand Exposure: No; Do You Dip or Chew Tobacco: No; Hx Alcohol Use: Yes Alcohol type: beer Hx Substance Use: No Preferred Language: Albanian Communication Ability: Effective Manager Radio Required: No Beliefs That Will Affect Care: None Current Living Situation: Other [facility] Other Information That Helps Us Care for You: No Feels Safe at Home: Yes Safety Concerns: Feels Safe At This Time Assistive Devices: None Review of Systems Review of Systems: As per HPI, all other systems reviewed and negative Physical Exam Physical Exam: GENERAL: Anxious, obese, no respiratory distress SKIN: Normal color, warm HEENT: Alopecia, [place] palpebral conjunctivae, no ptosis, dry buccal mucosa, facial droop when smiling NECK : Supple, no tenderness CHEST : CTA, no tenderness HEART : Tachycardic, no obvious murmurs ABDOMEN: Some distention, nontender RECTAL : Refused EXTREMITIES : No LE swelling/tenderness, no other conspicuous deformities noted NEUROLOGIC : Coherent, flattened left nasolabial fold on smiling, dense hemiparesis left upper extremity and left lower extremity, tremor left hand Results & Data Results & Data Vital Signs (Past 12 Hours) Vital Signs Temp Pulse Pulse Resp BP BP Pulse Ox 01/07/24 18:40 116 H 15 95 01/07/24 18:30 116 H 17 94 01/07/24 18:30 119/74 01/07/24 18:20 122 H 24 97 01/07/24 18:15 122 H 21 95 01/07/24 18:15 107/72 01/07/24 18:10 120 H 21 94 01/07/24 18:00 121 H 93 01/07/24 18:00 109/67 01/07/24 17:52 121 H 18 115/65 95 01/07/24 17:50 123 H 18 95 01/07/24 17:47 123 H 24 97 01/07/24 17:47 115/65 01/07/24 17:40 124 H 19 95 01/07/24 17:34 01/07/24 17:34 36.7 C 126 H 24 127/65 96 01/07/24 17:31 130 H 01/07/24 17:30 130 H 21 95 01/07/24 17:30 127/65 01/07/24 17:29 130 H O2 Del Method 01/07/24 18:40 01/07/24 18:30 01/07/24 18:30 01/07/24 18:20 01/07/24 18:15 01/07/24 18:15 01/07/24 18:10 01/07/24 18:00 01/07/24 18:00 01/07/24 17:52 Room Air 01/07/24 17:50 01/07/24 17:47 01/07/24 17:47 01/07/24 17:40 01/07/24 17:34 Room Air 01/07/24 17:34 Room Air 01/07/24 17:31 01/07/24 17:30 01/07/24 17:30 01/07/24 17:29 Laboratory Results Laboratory Results WBC 10.44 K/ul (4.8-10.8) 01/07/24 17:31 RBC 4.75 M/uL (4.70-6.10) 01/07/24 17:31 Hgb 13.6 g/dl (14.0-18.0) L 01/07/24 17:31 POC Hgb 13.6 g/dl (14.0-18.0) L 01/07/24 17:40 Hct 41.6 % (42.0-52.0) L 01/07/24 17: POC Hct 40 % (42-52) L 01/07/24 17:40 MCV 87.6 fL (80.0-100.0) 01/07/24 17:31 MCH 28.6 pg (25.0-34.0) 01/07/24 17:31 MCHC 32.7 g/dL (32.0-36.0) 01/07/24 17:31 RDW Std Deviation 41.4 fL (36.4-46.3) 01/07/24 17:31 RDW Coeff of Boris 12.9 % (11.5-14.5) 01/07/24 17:31 Plt Count 258 K/uL (130-400) 01/07/24 17:31 MPV 9.4 fL (9.4-12.4) 01/07/24 17:31 Immature Gran % (Auto) 0.6 % 01/07/24 17:31 Neut % (Auto) 91.1 % 01/07/24 17:31 Lymph % (Auto) 2.5 % 01/07/24 17:31 [place] % (Auto) 5.6 % 01/07/24 17: Eos % (Auto) 0.0 % 01/07/24 17:31 Baso % (Auto) 0.2 % 01/07/24 17:31 Neut # (Auto) 9.52 K/uL (1.40-6.50) H 01/07/24 17:31 Lymph # (Auto) 0.26 K/uL (1.20-3.40) L 01/07/24 17:31 [place] # (Auto) 0.58 K/uL (0.11-0.59) 01/07/24 17:31 Eos # (Auto) 0.00 K/uL (0.00-0.50) 01/07/24 17:31 Baso # (Auto) 0.02 K/uL (0.00-0.20) 01/07/24 17: Immature Gran # (Auto) 0.06 K/uL (0.01-0.20) 01/07/24 17: PT 11.4 Seconds (9.0-12.0) 01/07/24 17: INR 1.0 (0.9-1.1) 01/07/24 17: APTT 26 Seconds (21-31) 01/07/24 17: PTT Ratio 0.9 01/07/24 17:31 POC Sodium 141 mmol/L (135-144) 01/07/24 17:40 Sodium 139 mmol/L (136-145) 01/07/24 17:31 POC Potassium 3.4 mmol/L (3.3-5.0) 01/07/24 17:40 Potassium 3.4 mmol/L (3.5-5.1) L 01/07/24 17:31 POC Chloride 103 mmol/L (101-112) 01/07/24 17:40 Chloride 106 mmol/L (98-107) 01/07/24 17:31 Carbon Dioxide 21 mmol/L (21-32) 01/07/24 17:31 POC Total CO2 20 mmol/L (24-31) L 01/07/24 17:40 Anion Gap 12 (3-11) H 01/07/24 17:31 POC Anion Gap 23.0 mmol/L (16-25) 01/07/24 17:40 POC BUN 11 mg/dl (7-18) 01/07/24 17:40 BUN 13 mg/dl (6-23) 01/07/24 17:31 Creatinine 1.24 mg/dl (0.6-1.4) 01/07/24 17:31 POC Creatinine 1.2 mg/dl (0.6-1.3) 01/07/24 17:40 Est Cr Clr Drug Dosing 92.9 ml/min 01/07/24 17:31 Est GFR ( Amer) 80.3 ml/min 01/07/24 17:31 Est GFR (Non-Af Amer) 69.3 ml/min 01/07/24 17:31 BUN/Creatinine Ratio 10.5 (10-20) 01/07/24 17:31 Glucose 129 mg/dl (70-99(Fasting)) H 01/07/24 17:31 POC Glucose 122 mg/dl (70-99) H 01/07/24 17:35 POC Glucose (other) 122 mg/dl (70-99) H 01/07/24 17:40 Estimat Average Glucose 123 mg/dl 01/07/24 17:31 Hemoglobin A1c 5.9 % (4.5-5.6) H 01/07/24 17:31 Calcium 8.8 mg/dl (8.6-10.3) 01/07/24 17:31 POC Ioniz Calcium Dez 1.18 mmol/l (1.12-1.32) 01/07/24 17:40 Magnesium 1.8 mg/dl (1.7-2.4) 01/07/24 17:31 Total Bilirubin 0.3 mg/dl (0.2-1.0) 01/07/24 17:31 AST 14 U/L (13-39) 01/07/24 17:31 ALT 23 U/L (7-52) 01/07/24 17:31 Alkaline Phosphatase 63 U/L (34-104) 01/07/24 17:31 Troponin I High Sens 8.9 pg/ml (0-20) 01/07/24 17:31 Total Protein 6.2 gm/dl (6.0-8.3) 01/07/24 17:31 Albumin 3.9 gm/dl (3.4-5.0) 01/07/24 17:31 Globulin 2.3 gm/dl (2.5-4.0) L 01/07/24 17:31 Albumin/Globulin Ratio 1.7 (0.9-2) 01/07/24 17:31 Impressions Chest CTA 01/07/24 17:08 CT ANGIOGRAM OF THE CHEST CLINICAL HISTORY: Atypical chest pain. Stroke like symptoms. COMPARISON STUDY: Chest CT dated 12/19/2023. TECHNIQUE: Following the IV administration of 119 cc of Optiray 320, CT angiogram of the chest was performed from the thoracic inlet to the upper abdomen utilizing the dissection protocol. Images are reviewed in the axial, sagittal, and coronal planes. 3-D MIPS images are created and assessed. IV contrast was administered without complication. A dose lowering technique was utilized adhering to the principles of ALARA. There is streak artifact from the arms which could not be elevated above the chest. There is also motion artifact. FINDINGS: Thyroid: Imaged portions of the thyroid gland are normal in size and attenuation. Thoracic aorta: The thoracic aorta is normal in caliber and demonstrates standar d 3-vessel arch anatomy. No dissection is seen. The arch vessels are widely patent. Pulmonary vasculature: The pulmonary trunk is normal in caliber. There is no evidence of pulmonary embolus in the main, lobar, or proximal segmental pulmonary arteries. Evaluation of the peripheral branches is significantly degraded by motion artifact. Heart: The heart is normal in size and without pericardial effusion. Lungs and pleural spaces: Evaluation of the lung parenchyma is degraded by motion artifact. There is dependent atelectasis. No airspace consolidation or pleural effusion is identified. A 4 mm right middle lobe pulmonary nodule on image #88 and 3 mm left basilar nodules on images #82 and #85 are unchanged. Mediastinum: There are numerous mildly enlarged mediastinal lymph nodes which m easure up to 11 mm short axis. These are similar to previous. Nataly: Mildly enlarged hilar nodes are unchanged and measure up to 14 mm in short axis. Axillae: There is no axillary lymphadenopathy. Upper abdomen: There is a small hiatal hernia. A 1.8 cm cyst is noted in the right hepatic lobe. The liver appears steatotic. Skeletal structures: No lytic or blastic bony lesions are seen. There are numerous chronic/healed right posterior rib fractures. There are subacute appearing left lateral rib fractures. IMPRESSION: 1. Normal CT angiogram of the thoracic aorta. 2. There is no airspace consolidation or pleural effusion. 3. Hepatic steatosis. 4. Mildly enlarged mediastinal and hilar lymph nodes are nonspecific and similar to previous. 5. Additional findings as above. ACT 112: Negative or not required by law. Electronically signed by: Hunter Bowden M.D. 01/07/2024 6:[address] 01/07/24 17:[address] OF THE BRAIN; CT ANGIOGRAM OF THE BRAIN; CT ANGIOGRAM OF THE NECK CLINICAL HISTORY: Neurological deficit. Stroke like symptoms. COMPARISON STUDY: No priors. TECHNIQUE: Unenhanced axial CT scan of the brain is performed. Subsequently, following the IV administration of 119 of Optiray 320, CT angiogram of the head and neck was performed from the aortic arch to the vertex. Images are reviewed in the axial, sagittal, and coronal planes. 3-D MIPS images are created and assessed. IV contrast was administered without complication. All measurements were calculated based on NASCET criteria. A dose lowering technique was utilized adhering to the principles of ALARA. CT DOSE: 2037.25 mGy.cm FINDINGS: Brain parenchyma: There is a 12 mm chronic-appearing lacunar infarct centered in the left basal ganglia seen on image #11. There is no hemorrhage, mass effect, or evidence of acute territorial ischemia by CT criteria. There is no evidence of enhancing mass lesion on the angiogram phase images. The ventricles, sulci, and cisterns are normal in configuration. Roe-white matter differentiation is preserved. No extra-axial fluid collection is seen. Thoracic aorta: Visualized portions of the thoracic aorta are normal in caliber. The aortic arch demonstrates standard 3-vessel anatomy. Right carotid arterial system: The right common carotid artery is widely patent, as are the right internal and external carotid arteries. Left carotid arterial system: The left common carotid artery is widely patent, as are the left internal and external carotid arteries. Vertebral arteries: The vertebral arteries are widely patent bilaterally and mild left-sided dominance. Subclavian arteries: Widely patent bilaterally. Intracranial vasculature: The internal carotid arteries are patent at the skull base, as are the anterior and middle cerebral arteries bilaterally. The vertebrobasilar system and posterior cerebral arteries are widely patent. The left vertebral artery is dominant. There is a left posterior communicating artery. There is no aneurysm, high-grade stenosis, or focal vessel cut off seen throughout the intracranial circulation. Jugular veins: Patent bilaterally. Dural sinuses: Patent. Lung apices: Partially visualized upper lobe lung parenchyma appears clear. Soft tissues: The visualized pharyngeal soft tissues are normal in appearance noting angiographic phase technique. The oropharyngeal airway appears widely patent. The salivary and thyroid glands are normal in appearance. No cervical lymphadenopathy is seen. Skeletal structures: The calvarium appears intact. The cervical spine is maintained noting multilevel spondylosis. Orbits: The bony orbits are intact. Orbital contents are normal as visualized. Sinuses and mastoids: The paranasal sinuses are clear. The mastoid air cells are well pneumatized. IMPRESSION: 1. There is no hemorrhage, mass effect, or evidence of acute territorial ischemia by CT criteria. 2. There is a 12 mm chronic-appearing lacunar infarct centered in the left basal ganglia. Correlate with the neurological history. If warranted this could be further assessed with MRI. 3. Unremarkable CT angiogram of the brain. 4. Unremarkable CT angiogram of the neck. ACT 112: Negative or not required by law. Electronically signed by: Hunter Bowden M.D. 01/07/2024 5:45 PM Head CTA 01/07/24 17:[address] OF THE BRAIN; CT ANGIOGRAM OF THE BRAIN; CT ANGIOGRAM OF THE NECK CLINICAL HISTORY: Neurological deficit. Stroke like symptoms. COMPARISON STUDY: No priors. TECHNIQUE: Unenhanced axial CT scan of the brain is performed. Subsequently, following the IV administration of 119 of Optiray 320, CT angiogram of the head and neck was performed from the aortic arch to the vertex. Images are reviewed in the axial, sagittal, and coronal planes. 3-D MIPS images are created and assessed. IV contrast was administered without complication. All measurements were calculated based on NASCET criteria. A dose lowering technique was utilized adhering to the principles of ALARA. CT DOSE: 2037.25 mGy.cm FINDINGS: Brain parenchyma: There is a 12 mm chronic-appearing lacunar infarct centered in the left basal ganglia seen on image #11. There is no hemorrhage, mass effect, or evidence of acute territorial ischemia by CT criteria. There is no evidence of enhancing mass lesion on the angiogram phase images. The ventricles, sulci, and cisterns are normal in configuration. Roe-white matter differentiation is preserved. No extra-axial fluid collection is seen. Thoracic aorta: Visualized portions of the thoracic aorta are normal in caliber. The aortic arch demonstrates standard 3-vessel anatomy. Right carotid arterial system: The right common carotid artery is widely patent, as are the right internal and external carotid arteries. Left carotid arterial system: The left common carotid artery is widely patent, as are the left internal and external carotid arteries. Vertebral arteries: The vertebral arteries are widely patent bilaterally and mild left-sided dominance. Subclavian arteries: Widely patent bilaterally. Intracranial vasculature: The internal carotid arteries are patent at the skull base, as are the anterior and middle cerebral arteries bilaterally. The vertebrobasilar system and posterior cerebral arteries are widely patent. The left vertebral artery is dominant. There is a left posterior communicating artery. There is no aneurysm, high-grade stenosis, or focal vessel cut off seen throughout the intracranial circulation. Jugular veins: Patent bilaterally. Dural sinuses: Patent. Lung apices: Partially visualized upper lobe lung parenchyma appears clear. Soft tissues: The visualized pharyngeal soft tissues are normal in appearance noting angiographic phase technique. The oropharyngeal airway appears widely patent. The salivary and thyroid glands are normal in appearance. No cervical lymphadenopathy is seen. Skeletal structures: The calvarium appears intact. The cervical spine is maintained noting multilevel spondylosis. Orbits: The bony orbits are intact. Orbital contents are normal as visualized. Sinuses and mastoids: The paranasal sinuses are clear. The mastoid air cells are well pneumatized. IMPRESSION: 1. There is no hemorrhage, mass effect, or evidence of acute territorial ischemia by CT criteria. 2. There is a 12 mm chronic-appearing lacunar infarct centered in the left basal ganglia. Correlate with the neurological history. If warranted this could be further assessed with MRI. 3. Unremarkable CT angiogram of the brain. 4. Unremarkable CT angiogram of the neck. ACT 112: Negative or not required by law. Electronically signed by: Hunter Bowden M.D. 01/07/2024 5:45 PM Neck CTA 01/07/24 17:[address] OF THE BRAIN; CT ANGIOGRAM OF THE BRAIN; CT ANGIOGRAM OF THE NECK CLINICAL HISTORY: Neurological deficit. Stroke like symptoms. COMPARISON STUDY: No priors. TECHNIQUE: Unenhanced axial CT scan of the brain is performed. Subsequently, following the IV administration of 119 of Optiray 320, CT angiogram of the head and neck was performed from the aortic arch to the vertex. Images are reviewed in the axial, sagittal, and coronal planes. 3-D MIPS images are created and assessed. IV contrast was administered without complication. All measurements were calculated based on NASCET criteria. A dose lowering technique was utilized adhering to the principles of ALARA. CT DOSE: 2037.25 mGy.cm FINDINGS: Brain parenchyma: There is a 12 mm chronic-appearing lacunar infarct centered in the left basal ganglia seen on image #11. There is no hemorrhage, mass effect, or evidence of acute territorial ischemia by CT criteria. There is no evidence of enhancing mass lesion on the angiogram phase images. The ventricles, sulci, and cisterns are normal in configuration. Roe-white matter differentiation is preserved. No extra-axial fluid collection is seen. Thoracic aorta: Visualized portions of the thoracic aorta are normal in caliber. The aortic arch demonstrates standard 3-vessel anatomy. Right carotid arterial system: The right common carotid artery is widely patent, as are the right internal and external carotid arteries. Left carotid arterial system: The left common carotid artery is widely patent, as are the left internal and external carotid arteries. Vertebral arteries: The vertebral arteries are widely patent bilaterally and mild left-sided dominance. Subclavian arteries: Widely patent bilaterally. Intracranial vasculature: The internal carotid arteries are patent at the skull base, as are the anterior and middle cerebral arteries bilaterally. The vertebrobasilar system and posterior cerebral arteries are widely patent. The left vertebral artery is dominant. There is a left posterior communicating artery. There is no aneurysm, high-grade stenosis, or focal vessel cut off seen throughout the intracranial circulation. Jugular veins: Patent bilaterally. Dural sinuses: Patent. Lung apices: Partially visualized upper lobe lung parenchyma appears clear. Soft tissues: The visualized pharyngeal soft tissues are normal in appearance noting angiographic phase technique. The oropharyngeal airway appears widely patent. The salivary and thyroid glands are normal in appearance. No cervical lymphadenopathy is seen. Skeletal structures: The calvarium appears intact. The cervical spine is maintained noting multilevel spondylosis. Orbits: The bony orbits are intact. Orbital contents are normal as visualized. Sinuses and mastoids: The paranasal sinuses are clear. The mastoid air cells are well pneumatized. IMPRESSION: 1. There is no hemorrhage, mass effect, or evidence of acute territorial ischemia by CT criteria. 2. There is a 12 mm chronic-appearing lacunar infarct centered in the left basal ganglia. Correlate with the neurological history. If warranted this could be fur ther assessed with MRI. 3. Unremarkable CT angiogram of the brain. 4. Unremarkable CT angiogram of the neck. ACT 112: Negative or not required by law. Electronically signed by: Hunter Bowden M.D. 01/07/2024 5:45 PM Diagnostic Findings EKG as per my interpretation : Rate 125, sinus tachycardia, normal axis, incomplete RBBB, T wave abnormalities septal leads
[2024-01-07 20:39] LABS: Thyroid Stimulating Hormone 0.316 uIu/ml (0.300-4.500)
[2024-01-07] MEDS ORDERED: PHARMACIST DISCHARGE MED REC CONSULT PRN (20:42)
[2024-01-07] MEDS ORDERED: oxyCODONE HCL IR 5 MG TAB (IMMEDIATE RELEASE) PO PRN (20:44)
[2024-01-07] MEDS ORDERED: PROMETHAZINE HCL 12.5 MG in SODIUM CHLORIDE 0.9% 50 ML IV PRN (20:44)
[2024-01-07 21:31] LABS: Hematocrit (blood only) 39.4 % (42.0-52.0); Hemoglobin 13.3 g/dl (14.0-18.0); Reticulocyte % 1.6 % (0.50-2.00); Reticulocytes # 0.07 10^6/uL (0.020-0.100)
[2024-01-07 21:45] LABS: Ferritin 103.2 ng/ml (8-388)
[2024-01-07] MEDS: NSS + 20MEQ KCL 20 MEQ/1,000 ML BAG IV ONE (21:46)
[2024-01-07 21:51] LABS: Folate (Folic Acid),Ser orPlas > 22.30 ng/ml (>5.38)
[2024-01-07 21:52] LABS: Vitamin B12 193 pg/ml (180-914)
--- NOTE | 2024-01-07 22:02 | Magnetic Resonance Report ---
MRI OF THE BRAIN WITHOUT IV CONTRAST CLINICAL HISTORY: Strokelike symptoms. Left arm and leg weakness. COMPARISON STUDY: CT of the brain dated 01/07/2024. TECHNIQUE: MRI of the brain was performed utilizing various T1 and T2-weighted sequences in the axial , sagittal, and coronal planes. IV contrast was not administered for this examination. FINDINGS: Brain parenchyma: A chronic lacunar infarct is noted in left basal ganglia. There is minimal microang iopathic disease. There is no hemorrhage or mass effect. There is no restricted diffusion to suggest acute ischemia. Roe-white matter differentiation is preserved. No extra-axial fluid collection is se en. The cerebellar tonsils are normal in configuration. Ventricles, sulci, and cisterns: Normal in configuration. Pituitary and sella: Unremarkable. Intracranial vasculature: Normal flow voids are maintained at the skull base. Orbits: The bony orbits are grossly intact. Orbital contents are normal in appearance. Sinuses and mastoids: Clear. Calvarium: Unremarkable. Cervical cord: Partially visualized cervical spinal cord is normal in morphology and signal intensity . IMPRESSION: No acute intracranial abnormality. ACT 112: Negative or not required by law. Electronically signed by: Hunter Bowden M.D. 01/07/2024 10:01 PM
[2024-01-07] MEDS: POTASSIUM CHLORIDE 20 MEQ in LACTATED RINGER'S 1,000 ML IV ONE (22:14)
[2024-01-07] MEDS: LORazepam 0.5 MG TAB PO STA (22:15)
[2024-01-07 22:34] LABS: Appearance Urine Clear (Clear); Bilirubin Urine Negative (Negative); Blood Urine Negative (Negative); Color Urine Yellow; Glucose Urine UA Trace (Negative); Ketones Urine Negative (Negative); Leukocyte Esterase Urine Negative (Negative); Nitrite Urine Negative (Negative); Protein Urine Negative (Negative); Specific Gravity Urine 1.036 (1.000-1.030); Urobilinogen Urine Negative (Negative); pH Urine 5.5 (4.5-7.5)
[2024-01-07 23:02] LABS: Amphetamines+Metham, Urine Neg (Neg); Barbiturates, Urine Neg (Neg); Benzodiazepine, Urine Neg (Neg); Cocaine, Urine Neg (Neg); MDMA (Ecstacy), Urine Pos (Neg); Marijuana, Urine Neg (Neg); Methadone, Urine Neg (Neg); Opiate, Urine Neg (Neg); Phencyclidine, Urine Neg (Neg)
[2024-01-08] MEDS ORDERED: LEVALBUTEROL TARTRATE 15 GM HFA.AER.AD INH PRN (00:45)
[2024-01-08] MEDS: hydrOXYzine HCl 25 MG TAB PO SCH (01:23)
[2024-01-08] MEDS: traZODone HCL 100 MG TAB PO SCH (01:24)
[2024-01-08] MEDS: POTASSIUM CHLORIDE 20 MEQ in LACTATED RINGER'S 1,000 ML IV ONE (01:24)
[2024-01-08] MEDS: PREGABALIN 150 MG CAP PO SCH (01:45)
[2024-01-08] MEDS: LACTATED RINGER'S 1,000 ML IV ONE ×3 (02:22→11:43)
[2024-01-08] MEDS: FLUTICASONE/VILANTEROL 100/25MCG 14 PUFFS/INHALER INH SCH (02:22)
[2024-01-08 05:38] LABS: Basophils # (auto) 0.01 K/uL (0.00-0.20); Basophils % (auto) 0.2 %; Eosinophils # (auto) 0.01 K/uL (0.00-0.50); Eosinophils % (auto) 0.2 %; Hematocrit (blood only) 37.1 % (42.0-52.0); Hemoglobin 12.4 g/dl (14.0-18.0); Immature Granulocytes # (auto) 0.03 K/uL (0.01-0.20); Immature Granulocytes % (auto) 0.5 %; Lymphocytes # (auto) 0.47 K/uL (1.20-3.40); Lymphocytes % (auto) 7.3 %; Mean Corpuscular Hemoglobin 29.1 pg (25.0-34.0); Mean Corpuscular Hgb Conc 33.4 g/dL (32.0-36.0); Mean Corpuscular Volume 87.1 fL (80.0-100.0); Mean Platelet Volume 9.5 fL (9.4-12.4); Monocytes # (auto) 0.53 K/uL (0.11-0.59); Monocytes % (auto) 8.2 %; Neutrophils % (auto) 83.6 %; Platelet Count 253 K/uL (130-400); RDW Coefficient of Variation 13.2 % (11.5-14.5); RDW Standard Deviation 42.4 fL (36.4-46.3); Red Blood Count 4.26 M/uL (4.70-6.10); White Blood Count 6.45 K/ul (4.8-10.8)
[2024-01-08 05:42] LABS: BUN Creatinine Ratio 9.3 (10-20); Calcium 9.2 mg/dl (8.6-10.3); Chol HDL Ratio 3.3 (0-5); Creatinine Clr Calc Pharmacy 129.4 ml/min; Est GFR (African American) 108.1 ml/min; Est GFR (Non-African American) 93.2 ml/min; Potassium 3.9 mmol/L (3.5-5.1)
[2024-01-08] MEDS: POTASSIUM CHLORIDE CRTAB 20 MEQ TABCR PO STA (06:25)
--- NOTE | 2024-01-08 06:46 | Communication Note ---
Date of Service: January 08, 2024 RN witnessed patient bending his leg to a 45 deg. and raise his left arm almost vertically to stretch while he was sleeping.
[2024-01-08 08:06] LABS: Estimated Average Glucose 120 mg/dl; Hemoglobin A1C 5.8 % (4.5-5.6)
[2024-01-08] MEDS: ENOXAPARIN INJ 40 MG/0.4 ML SYR SQ SCH (09:41)
[2024-01-08] MEDS: ATORVASTATIN 40 MG TAB PO SCH (09:41)
[2024-01-08] MEDS: VENLAFAXINE HCL XR 150 MG CAPXR PO SCH (09:41)
[2024-01-08] MEDS: ASPIRIN 81 MG ECTAB PO SCH (09:41)
[2024-01-08] MEDS: FLUTICASONE PROPIONATE NA SPR 16 GM BTL SCH (09:43)
--- NOTE | 2024-01-08 11:23 | Neurology Consultation ---
Date of Consultation January 08, 2024 Assessment & Plan (1) Acute left-sided weakness: Recommend continued work up to include the following: MRI cervical, thoracic lumbar spine with and without contrast Echocardiogram as part of complete stroke workup Continue frequent neurological assessments Obtain stat CT brain without contrast for any acute neurological decline Continue to monitor/control blood pressure & blood glucose Continue to monitor telemetry closely Recommend ZioPatch at DC if no evidence of arrhythmia during inpatient monitoring Continue to monitor renal and hepatic function, keep euvolemic Metabolic workup should include hgbA1c, fasting lipids, homocysteine, TSH, D Dimer Recommend DAPT for at least 3 weeks Recommend high dose statin therapy indefinitely if tolerated Ok from neurology perspective for VTE prophylaxis PT/OT/SLT to eval and treat Telehealth Consultation Telehealth Information Telehealth Information: I performed this visit using a real-time telehealth connection between my location and the patients location ([facility]). After connecting through interactive tele-video, patient was identified by name and date of and/or wristband check.Patient (or authorized healthcare sales representative girls' apparel) was informed that this was a telemedicine visit and it was being conducted confidentially over secure lines. My office door was closed and no one else was present in the room with me.Patient (or authorized healthcare sales representative girls' apparel) provided consent to proceed with the visit, expressed an understanding of privacy and security of the telemedicine visit, and gave permission to have a hospital sales representative girls' apparel in the room in order to assist with the visit and to conduct portions of the visit, as needed. I informed the patient (or authorized healthcare sales representative girls' apparel) that I reviewed their record and presented the opportunity for them to ask any questions regarding the visit today. The patient agreed to participate. History of Present Illness Reason for Consultation: Left hemiparesis Requesting Physician: Dr. Orantes Attending Physician: Peter Orantes MD History of Present Illness 48yo male with reported hx of COPD, ADHD, anxiety, mood disorder presented from incarceration facility yesterday after he reported he awoke from a nap with left sided weakness. Prior to nap was in normal state of health but awoke with symptoms. Arrived to ER and was made a stroke alert and underwent emergent stroke imaging. ER was in contact with telestroke from [facility]. He has undergone emergent stroke imaging including CT brain without contrast, personally reviewed at today, revealing no overt evidence of hemorrhage. CT angiographic studies of head and neck, also personally reviewed at today, reveal no overt evidence of large vessel occlusion or significant/flow limiting stenosis. There is notable hypodensity deep left subcortical region- likely chronic infarct. I have performed televideo consultation. He is alert & oriented; able to answer all questions appropriately, name objects on televideo monitor, repeat phrases and perform complex/embedded commands without deficit. Neurological exam reveals concern for possible functional left hemiparesis. Fortunately, he has already undergone MRI brain revealing no evidence of acute ischemic stroke. At this time denies pain or discomfort. Reports no recent trauma. No reported remote neck or back injury. Allergies Allergy/AdvReac Type Severity Reaction Status Date / Time aripiprazole [From Abili] Allergy Unknown ON SCI Verified 01/07/24 19:09 [facility] MED LIST pollen extracts Allergy Unknown ON SCI Verified 01/07/24 19:09 [facility] MED LIST Home Medications Medication Instructions Recorded Confirmed Type metoprolol tartrate 25 mg tablet 25 mg PO DAILY 10/26/23 01/07/24 History hydroxyzine pamoate 50 mg capsule 50 mg PO BID 10/27/23 01/07/24 History levalbuterol tartrate 45 2 inh inhalation QID PRN Shortness 12/19/23 01/07/24 History mcg/actuation aerosol inhaler Of Breath Or Wheezing (Xopenex HFA) lisinopril 10 mg tablet 10 mg PO DAILY 12/19/23 01/07/24 History pregabalin 150 mg capsule (Lyrica) 150 mg PO BID 12/19/23 01/07/24 History terbinafine HCl 1 % topical cream 1 applic topical BID 12/19/23 01/07/24 History trazodone 100 mg tablet 100 mg PO HS 12/19/23 01/07/24 History venlafaxine 150 mg 150 mg PO DAILY 12/19/23 01/07/24 History capsule,extended release 24 hr (Effexor XR) Fluticasone Nasal Spr 0.05% 1 spray intranasal BID 01/07/24 01/07/24 History fluticasone 500 mcg-salmeterol 50 1 inh inhalation BID 01/07/24 01/07/24 History mcg/dose blistr powdr for inhalation (Kiara Lechuga) Patient History Medical History COPD (chronic obstructive pulmonary disease) Social History Smoking Status: Never smoker Second Hand Exposure: No; Do You Dip or Chew Tobacco: No; Hx Alcohol Use: Yes Alcohol type: beer Hx Substance Use: No Preferred Language: Cypriot Communication Ability: Effective Bill Checker Required: No Beliefs That Will Affect Care: None Current Living Situation: Other [facility] Other Information That Helps Us Care for You: No Feels Safe at Home: Yes Safety Concerns: Feels Safe At This Time Assistive Devices: None Physical Exam Neurological Examination: Mental Status: Awake and alert. Oriented to person, place, and time. Fluency naming repetition and comprehension appear grossly intact. Affect remains appropriate. CN testing: I: Denies changes in ability to smell II:Reports no changes in visual acuity III/IV/: No evidence of gaze preference, hippus, nystagmus or roving eye movements V: Facial sensation reportedly grossly intact to light touch bilaterally VII: Facial movements appear without evidence of asymmetry VIII: Hearing appears grossly intact to loud voice bilaterally IX/X: Palate appears to elevate symmetrically XI: Shoulder shrug appears symmetric/ grossly intact bilaterally XII: Tongue protrudes midline without evidence of biting Motor exam: Left hemiparesis- appears functional Sensory: Sensation is reportedly grossly intact throughout Coordination:Deferred Reflexes: Deferred Gait: Deferred Results & Data Vital Signs (Past 12 Hours) Vital Signs Temp Pulse Pulse Resp BP BP BP 01/08/24 08:06 36.3 C L 90 16 134/79 01/08/24 08:01 98 H 01/08/24 03:18 36.4 C L 104 H 18 117/64 01/08/24 02:23 01/08/24 02:23 36.4 C L 105 H 12 130/73 01/08/24 01:49 96 H 01/08/24 00:00 108 H 19 110/73 Pulse Ox O2 Del Method 01/08/24 08:06 95 Room Air 01/08/24 08:01 01/08/24 03:18 95 Room Air 01/08/24 02:23 Room Air 01/08/24 02:23 96 Room Air 01/08/24 01:49 01/08/24 00:00 95 Laboratory Results Abnormal lab results 01/07/24 01/07/24 01/07/24 Range/Units 17:31 17:35 17:40 RBC (4.70-6.10) M/uL Hgb 13.6 L (14.0-18.0) g/dl POC Hgb 13.6 L (14.0-18.0) g/dl Hct 41.6 L (42.0-52.0) % POC Hct 40 L (42-52) % Neut # (Auto) 9.52 H (1.40-6.50) K/uL Lymph # (Auto) 0.26 L (1.20-3.40) K/uL Potassium 3.4 L (3.5-5.1) mmol/L Chloride (98-107) mmol/L POC Total CO2 20 L (24-31) mmol/L Anion Gap 12 H (3-11) BUN/Creatinine Ratio (10-20) Glucose 129 H (70-99(Fasting)) mg/dl POC Glucose 122 H (70-99) mg/dl POC Glucose (other) 122 H (70-99) mg/dl Hemoglobin A1c 5.9 H (4.5-5.6) % Lactate (0.4-2.0) mmol/L Iron (35-175) mcg/dl Globulin 2.3 L (2.5-4.0) gm/dl Ur Specific [place] (1.000-1.030) Urine Glucose (UA) (Negative) MDMA (Ecstasy) Screen (Neg) 01/07/24 01/07/24 01/08/24 Range/Units 20:47 22:20 00:23 RBC (4.70-6.10) M/uL Hgb 13.3 L (14.0-18.0) g/dl POC Hgb (14.0-18.0) g/dl Hct 39.4 L (42.0-52.0) % POC Hct (42-52) % Neut # (Auto) (1.40-6.50) K/uL Lymph # (Auto) (1.20-3.40) K/uL Potassium (3.5-5.1) mmol/L Chloride (98-107) mmol/L POC Total CO2 (24-31) mmol/L Anion Gap (3-11) BUN/Creatinine Ratio (10-20) Glucose (70-99(Fasting)) mg/dl POC Glucose (70-99) mg/dl POC Glucose (other) (70-99) mg/dl Hemoglobin A1c (4.5-5.6) % Lactate 4.1 H* 3.2 H* (0.4-2.0) mmol/L Iron 33 L (35-175) mcg/dl Globulin (2.5-4.0) gm/dl Ur Specific [place] 1.036 H (1.000-1.030) Urine Glucose (UA) Trace H (Negative) MDMA (Ecstasy) Screen Pos H (Neg) 01/08/24 Range/Units 05:11 RBC 4.26 L (4.70-6.10) M/uL Hgb 12.4 L (14.0-18.0) g/dl POC Hgb (14.0-18.0) g/dl Hct 37.1 L (42.0-52.0) % POC Hct (42-52) % Neut # (Auto) (1.40-6.50) K/uL Lymph # (Auto) 0.47 L (1.20-3.40) K/uL Potassium (3.5-5.1) mmol/L Chloride 113 H (98-107) mmol/L POC Total CO2 (24-31) mmol/L Anion Gap (3-11) BUN/Creatinine Ratio 9.3 L (10-20) Glucose 155 H (70-99(Fasting)) mg/dl POC Glucose (70-99) mg/dl POC Glucose (other) (70-99) mg/dl Hemoglobin A1c 5.8 H (4.5-5.6) % Lactate 2.6 H* (0.4-2.0) mmol/L Iron (35-175) mcg/dl Globulin (2.5-4.0) gm/dl Ur Specific [place] (1.000-1.030) Urine Glucose (UA) (Negative) MDMA (Ecstasy) Screen (Neg) Diagnostic Findings Chest CTA 01/07/24 17:08 CT ANGIOGRAM OF THE CHEST CLINICAL HISTORY: Atypical chest pain. Stroke like symptoms. COMPARISON STUDY: Chest CT dated 12/19/2023. TECHNIQUE: Following the IV administration of 119 cc of Optiray 320, CT angiogram of the chest was performed from the thoracic inlet to the upper abdomen utilizing the dissection protocol. Images are reviewed in the axial, sagittal, and coronal planes. 3-D MIPS images are created and assessed. IV contrast was administered without complication. A dose lowering technique was utilized adhering to the principles of ALARA. There is streak artifact from the arms which could not be elevated above the chest. There is also motion artifact. FINDINGS: Thyroid: Imaged portions of the thyroid gland are normal in size and attenuation. Thoracic aorta: The thoracic aorta is normal in caliber and demonstrates standard 3-vessel arch anatomy. No dissection is seen. The arch vessels are widely patent. Pulmonary vasculature: The pulmonary trunk is normal in caliber. There is no evidence of pulmonary embolus in the main, lobar, or proximal segmental pulmonary arteries. Evaluation of the peripheral branches is significantly degraded by motion artifact. Heart: The heart is normal in size and without pericardial effusion. Lungs and pleural spaces: Evaluation of the lung parenchyma is degraded by motion artifact. There is dependent atelectasis. No airspace consolidation or pleural effusion is identified. A 4 mm right middle lobe pulmonary nodule on image #88 and 3 mm left basilar nodules on images #82 and #85 are unchanged. Mediastinum: There are numerous mildly enlarged mediastinal lymph nodes which measure up to 11 mm short axis. These are similar to previous. Nataly: Mildly enlarged hilar nodes are unchanged and measure up to 14 mm in short axis. Axillae: There is no axillary lymphadenopathy. Upper abdomen: There is a small hiatal hernia. A 1.8 cm cyst is noted in the right hepatic lobe. The liver appears steatotic. Skeletal structures: No lytic or blastic bony lesions are seen. There are numerous chronic/healed right posterior rib fractures. There are subacute appearing left lateral rib fractures. IMPRESSION: 1. Normal CT angiogram of the thoracic aorta. 2. There is no airspace consolidation or pleural effusion. 3. Hepatic steatosis. 4. Mildly enlarged mediastinal and hilar lymph nodes are nonspecific and similar to previous. 5. Additional findings as above. ACT 112: Negative or not required by law. Electronically signed by: Hunter Bowden M.D. 01/07/2024 6:[address] 01/07/24 17:[address] OF THE BRAIN; CT ANGIOGRAM OF THE BRAIN; CT ANGIOGRAM OF THE NECK CLINICAL HISTORY: Neurological deficit. Stroke like symptoms. COMPARISON STUDY: No priors. TECHNIQUE: Unenhanced axial CT scan of the brain is performed. Subsequently, following the IV administration of 119 of Optiray 320, CT angiogram of the head and neck was performed from the aortic arch to the vertex. Images are reviewed in the axial, sagittal, and coronal planes. 3-D MIPS images are created and assessed. IV contrast was administered without complication. All measurements were calculated based on NASCET criteria. A dose lowering technique was utilized adhering to the principles of ALARA. CT DOSE: 2037.25 mGy.cm FINDINGS: Brain parenchyma: There is a 12 mm chronic-appearing lacunar infarct centered in the left basal ganglia seen on image #11. There is no hemorrhage, mass effect, or evidence of acute territorial ischemia by CT criteria. There is no evidence of enhancing mass lesion on the angiogram phase images. The ventricles, sulci, and cisterns are normal in configuration. Roe-white matter differentiation is preserved. No extra-axial fluid collection is seen. Thoracic aorta: Visualized portions of the thoracic aorta are normal in caliber. The aortic arch demonstrates standard 3-vessel anatomy. Right carotid arterial system: The right common carotid artery is widely patent, as are the right internal and external carotid arteries. Left carotid arterial system: The left common carotid artery is widely patent, as are the left internal and external carotid arteries. Vertebral arteries: The vertebral arteries are widely patent bilaterally and mild left-sided dominance. Subclavian arteries: Widely patent bilaterally. Intracranial vasculature: The internal carotid arteries are patent at the skull base, as are the anterior and middle cerebral arteries bilaterally. The vertebrobasilar system and posterior cerebral arteries are widely patent. The left vertebral artery is dominant. There is a left posterior communicating artery. There is no aneurysm, high-grade stenosis, or focal vessel cut off seen throughout the intracranial circulation. Jugular veins: Patent bilaterally. Dural sinuses: Patent. Lung apices: Partially visualized upper lobe lung parenchyma appears clear. Soft tissues: The visualized pharyngeal soft tissues are normal in appearance noting angiographic phase technique. The oropharyngeal airway appears widely patent. The salivary and thyroid glands are normal in appearance. No cervical lymphadenopathy is seen. Skeletal structures: The calvarium appears intact. The cervical spine is maintained noting multilevel spondylosis. Orbits: The bony orbits are intact. Orbital contents are normal as visualized. Sinuses and mastoids: The paranasal sinuses are clear. The mastoid air cells are well pneumatized. IMPRESSION: 1. There is no hemorrhage, mass effect, or evidence of acute territorial ischemia by CT criteria. 2. There is a 12 mm chronic-appearing lacunar infarct centered in the left basal ganglia. Correlate with the neurological history. If warranted this could be further assessed with MRI. 3. Unremarkable CT angiogram of the brain. 4. Unremarkable CT angiogram of the neck. ACT 112: Negative or not required by law. Electronically signed by: Hunter Bowden M.D. 01/07/2024 5:45 PM Head CTA 01/07/24 17:[address] OF THE BRAIN; CT ANGIOGRAM OF THE BRAIN; CT ANGIOGRAM OF THE NECK CLINICAL HISTORY: Neurological deficit. Stroke like symptoms. COMPARISON STUDY: No priors. TECHNIQUE: Unenhanced axial CT scan of the brain is performed. Subsequently, following the IV administration of 119 of Optiray 320, CT angiogram of the head and neck was performed from the aortic arch to the vertex. Images are reviewed in the axial, sagittal, and coronal planes. 3-D MIPS images are created and assessed. IV contrast was administered without complication. All measurements were calculated based on NASCET criteria. A dose lowering technique was utilized adhering to the principles of ALARA. CT DOSE: 2037.25 mGy.cm FINDINGS: Brain parenchyma: There is a 12 mm chronic-appearing lacunar infarct centered in the left basal ganglia seen on image #11. There is no hemorrhage, mass effect, or evidence of acute territorial ischemia by CT criteria. There is no evidence of enhancing mass lesion on the angiogram phase images. The ventricles, sulci, and cisterns are normal in configuration. Roe-white matter differentiation is preserved. No extra-axial fluid collection is seen. Thoracic aorta: Visualized portions of the thoracic aorta are normal in caliber. The aortic arch demonstrates standard 3-vessel anatomy. Right carotid arterial system: The right common carotid artery is widely patent, as are the right internal and external carotid arteries. Left carotid arterial system: The left common carotid artery is widely patent, as are the left internal and external carotid arteries. Vertebral arteries: The vertebral arteries are widely patent bilaterally and mild left-sided dominance. Subclavian arteries: Widely patent bilaterally. Intracranial vasculature: The internal carotid arteries are patent at the skull base, as are the anterior and middle cerebral arteries bilaterally. The vertebrobasilar system and posterior cerebral arteries are widely patent. The left vertebral artery is dominant. There is a left posterior communicating artery. There is no aneurysm, high-grade stenosis, or focal vessel cut off seen throughout the intracranial circulation. Jugular veins: Patent bilaterally. Dural sinuses: Patent. Lung apices: Partially visualized upper lobe lung parenchyma appears clear. Soft tissues: The visualized pharyngeal soft tissues are normal in appearance noting angiographic phase technique. The oropharyngeal airway appears widely patent. The salivary and thyroid glands are normal in appearance. No cervical lymphadenopathy is seen. Skeletal structures: The calvarium appears intact. The cervical spine is maintained noting multilevel spondylosis. Orbits: The bony orbits are intact. Orbital contents are normal as visualized. Sinuses and mastoids: The paranasal sinuses are clear. The mastoid air cells are well pneumatized. IMPRESSION: 1. There is no hemorrhage, mass effect, or evidence of acute territorial ischemia by CT criteria. 2. There is a 12 mm chronic-appearing lacunar infarct centered in the left basal ganglia. Correlate with the neurological history. If warranted this could be further assessed with MRI. 3. Unremarkable CT angiogram of the brain. 4. Unremarkable CT angiogram of the neck. ACT 112: Negative or not required by law. Electronically signed by: Hunter Bowden M.D. 01/07/2024 5:45 PM Neck CTA 01/07/24 17:[address] OF THE BRAIN; CT ANGIOGRAM OF THE BRAIN; CT ANGIOGRAM OF THE NECK CLINICAL HISTORY: Neurological deficit. Stroke like symptoms. COMPARISON STUDY: No priors. TECHNIQUE: Unenhanced axial CT scan of the brain is performed. Subsequently, following the IV administration of 119 of Optiray 320, CT angiogram of the head and neck was performed from the aortic arch to the vertex. Images are reviewed in the axial, sagittal, and coronal planes. 3-D MIPS images are created and assessed. IV contrast was administered without complication. All measurements were calculated based on NASCET criteria. A dose lowering technique was utilized adhering to the principles of ALARA. CT DOSE: 2037.25 mGy.cm FINDINGS: Brain parenchyma: There is a 12 mm chronic-appearing lacunar infarct centered in the left basal ganglia seen on image #11. There is no hemorrhage, mass effect, or evidence of acute territorial ischemia by CT criteria. There is no evidence of enhancing mass lesion on the angiogram phase images. The ventricles, sulci, and cisterns are normal in configuration. Roe-white matter differentiation is preserved. No extra-axial fluid collection is seen. Thoracic aorta: Visualized portions of the thoracic aorta are normal in caliber. The aortic arch demonstrates standard 3-vessel anatomy. Right carotid arterial system: The right common carotid artery is widely patent, as are the right internal and external carotid arteries. Left carotid arterial system: The left common carotid artery is widely patent, as are the left internal and external carotid arteries. Vertebral arteries: The vertebral arteries are widely patent bilaterally and m ild left-sided dominance. Subclavian arteries: Widely patent bilaterally. Intracranial vasculature: The internal carotid arteries are patent at the skull base, as are the anterior and middle cerebral arteries bilaterally. The vertebrobasilar system and posterior cerebral arteries are widely patent. The left vertebral artery is dominant. There is a left posterior communicating artery. There is no aneurysm, high-grade stenosis, or focal vessel cut off seen throughout the intracranial circulation. Jugular veins: Patent bilaterally. Dural sinuses: Patent. Lung apices: Partially visualized upper lobe lung parenchyma appears clear. Soft tissues: The visualized pharyngeal soft tissues are normal in appearance noting angiographic phase technique. The oropharyngeal airway appears widely patent. The salivary and thyroid glands are normal in appearance. No cervical lymphadenopathy is seen. Skeletal structures: The calvarium appears intact. The cervical spine is maintained noting multilevel spondylosis. Orbits: The bony orbits are intact. Orbital contents are normal as visualized. Sinuses and mastoids: The paranasal sinuses are clear. The mastoid air cells are well pneumatized. IMPRESSION: 1. There is no hemorrhage, mass effect, or evidence of acute territorial ischemia by CT criteria. 2. There is a 12 mm chronic-appearing lacunar infarct centered in the left basal ganglia. Correlate with the neurological history. If warranted this could be further assessed with MRI. 3. Unremarkable CT angiogram of the brain. 4. Unremarkable CT angiogram of the neck. ACT 112: Negative or not required by law. Electronically signed by: Hunter Bowden M.D. 01/07/2024 5:45 PM Brain MRI 01/07/24 18:27 MRI OF THE BRAIN WITHOUT IV CONTRAST CLINICAL HISTORY: Strokelike symptoms. Left arm and leg weakness. COMPARISON STUDY: CT of the brain dated 01/07/2024. TECHNIQUE: MRI of the brain was performed utilizing various T1 and T2-weighted sequences in the axial, sagittal, and coronal planes. IV contrast was not administered for this examination. FINDINGS: Brain parenchyma: A chronic lacunar infarct is noted in left basal ganglia. There is minimal microangiopathic disease. There is no hemorrhage or mass effect. There is no restricted diffusion to suggest acute ischemia. Roe-white matter differentiation is preserved. No extra-axial fluid collection is seen. The cerebellar tonsils are normal in configuration. Ventricles, sulci, and cisterns: Normal in configuration. Pituitary and sella: Unremarkable. Intracranial vasculature: Normal flow voids are maintained at the skull base. Orbits: The bony orbits are grossly intact. Orbital contents are normal in appearance. Sinuses and mastoids: Clear. Calvarium: Unremarkable. Cervical cord: Partially visualized cervical spinal cord is normal in morphology and signal intensity. IMPRESSION: No acute intracranial abnormality. ACT 112: Negative or not required by law. Electronically signed by: Hunter Bowden M.D. 01/07/2024 10:01 PM Medications Administered Home Medications Medication Instructions Recorded Confirmed Last Taken metoprolol tartrate 25 mg tablet 25 mg PO DAILY 10/26/23 01/07/24 12/19/23 hydroxyzine pamoate 50 mg capsule 50 mg PO BID 10/27/23 01/07/24 12/19/23 07:30 levalbuterol tartrate 45 2 inh inhalation QID PRN Shortness 12/19/23 01/07/24 11/10/23 mcg/actuation aerosol inhaler Of Breath Or Wheezing (Xopenex HFA) lisinopril 10 mg tablet 10 mg PO DAILY 12/19/23 01/07/24 11/12/23 pregabalin 150 mg capsule (Lyrica) 150 mg PO BID 12/19/23 01/07/24 12/19/23 07:30 terbinafine HCl 1 % topical cream 1 applic topical BID 12/19/23 01/07/24 12/03/23 trazodone 100 mg tablet 100 mg PO HS 12/19/23 01/07/24 12/18/23 venlafaxine 150 mg 150 mg PO DAILY 12/19/23 01/07/24 12/19/23 capsule,extended release 24 hr (Effexor XR) Fluticasone Nasal Spr 0.05% 1 spray intranasal BID 01/07/24 01/07/24 Unknown fluticasone 500 mcg-salmeterol 50 1 inh inhalation BID 01/07/24 01/07/24 Unknown mcg/dose blistr powdr for inhalation (Wixela Inhub) Active Medications Generic Name Dose Route Start Last Admin Trade Name Freq PRN Reason Stop Dose Admin Aspirin 81 mg 01/08/24 09:00 01/08/24 09:41 Aspirin 81 Mg Ectab PO 02/07/24 08:59 81 mg QAM SHANNON Administration Atorvastatin Calcium 40 mg 01/08/24 09:00 01/08/24 09:41 Atorvastatin 40 Mg Tab PO 02/07/24 08:59 40 mg QAM SHANNON Administration Enoxaparin Sodium 40 mg 01/08/24 09:00 01/08/24 09:41 Enoxaparin Inj 40 Mg/0.4 Ml Syr SQ 02/07/24 08:59 40 mg QAM SHANNON Administration Fluticasone Propionate 1 sprays 01/08/24 09:00 01/08/24 09:43 Fluticasone Propionate Na Spr 16 Gm Btl NA 02/07/24 08:59 1 sprays BID SHANNON Administration Fluticasone/Vilanterol 1 puffs 01/08/24 01:00 01/08/24 02:22 Fluticasone/Vilanterol 100/25mcg 14 Puffs/Inhaler INH 02/07/24 00:59 Not Given HS SHANNON Hydroxyzine HCl 50 mg 01/08/24 00:45 01/08/24 09:43 Hydroxyzine Hcl 25 Mg Tab PO 02/07/24 00:44 50 mg BID SHANNON Administration Pregabalin 150 mg 01/08/24 00:45 01/08/24 09:45 Pregabalin 150 Mg Cap PO 02/07/24 00:44 150 mg BID SHANNON Administration Trazodone HCl 100 mg 01/08/24 00:45 01/08/24 01:24 Trazodone Hcl 100 Mg Tab PO 02/07/24 00:44 100 mg HS SHANNON Administration Venlafaxine HCl 150 mg 01/08/24 09:00 01/08/24 09:41 Venlafaxine Hcl Xr 150 Mg Capxr PO 02/07/24 08:59 150 mg DAILY SHANNON Administration
--- NOTE | 2024-01-08 13:39 | XCELERA ---
[id number] \\[email or web address]\[id number]
[2024-01-08] MEDS: LORazepam 0.5 MG TAB PO PRN (14:40)
--- NOTE | 2024-01-08 14:45 | Hospitalist Progress Note ---
Date of Service January 08, 2024 Assessment & Plan (1) Acute left-sided weakness: Plan: Strokelike symptoms DD: Malingering Prior CVA--patient unaware of history --MRI brain:No acute intracranial abnormality. A chronic lacunar infarct is noted in left basal ganglia. There is minimal microangiopathic disease. There is no hemorrhage or mass effect. There is no restricted diffusion to suggest acute ischemia. Roe-white matter differentiation is preserved. No extra-axial fluid collection is seen. The cerebellar tonsils are normal in configuration. --Head/Neck CTA:There is no hemorrhage, mass effect, or evidence of acute territ orial ischemia by CT criteria. There is a 12 mm chronic-appearing lacunar infarct centered in the left basal ganglia. Correlate with the neurological history. If warranted this could be further assessed with MRI.Unremarkable CT angiogram of the brain. Unremarkable CT angiogram of the neck. --ECHO: Normal LV function. Moderate LVH. Normal RV size and function. Intact interatrial septum. Lipo hypertrophy of the interatrial septum. Atrial septum aneurysmal segment. No significant valvular disease. --Normal TSH, B12 levels -- Normal lipid panel --MRI spine pending --D-dimer, homocystine levels pending --Needs Zio patch as outpatient --Continue dual antiplatelet therapy as per nephrology --Continue statin --Appreciate neurology input --PT OT, speech therapy eval --Needs follow-up with neurology on discharge Prediabetes HbA1c 5.8 Lactic acidosis Improved with IV fluids No clear source of infection Hypertension BP relatively low in setting of possible CVA Resume lisinopril, metoprolol as able Hyperlipidemia Continue statin as above Chronic chest pain [facility] [facility] [place] Troponin negative Echo showed no signs of wall motion abnormality COPD No signs of exacerbation Continue home inhalers ADHD/Anxiety/Mood disorder Continue home medications DVT Px: Heparin SQ Code Status Full code Admission and Anticipated Discharge Date Admission Date: January 07, 2024 Subjective Patient is seen and examined at bedside States having left upper extremity and lower extremity weakness and numbness Also reports left eye change in vision Denies any chest pain, dyspnea, dizziness, nausea, vomiting, abdominal pain Admits to have headache Discussed with neurology today Snf guards informs that patient is likely malingering given ability to move left side of his body with no issues Review of Systems Review of Systems: All systems reviewed & are unremarkable except as noted in Subjective Physical Exam Physical Exam: Physical Exam: Vitals signs as noted above General Appearance:Obese, no apparent distress Head: normocephalic, Atraumatic Eyes: normal inspection, EOMI, + left eye visual changes Neck: supple, Trachea midline Respiratory/Chest: Normal breath sounds, CTA, No accessory muscle use Cardiovascular: S1, S2, No murmur Abdomen/GI:Soft, Non tender, Bowel sounds present Extremities/Musculoskeletal:normal inspection, no edema Neurologic/Psych:AAOX3, left hemiparesis Skin: normal color, warm Results & Data Results & Data Vital Signs (Past 12 Hours) Vital Signs Temp Pulse Pulse Resp BP Pulse Ox O2 Del Method 01/08/24 11:51 36.3 C L 90 16 116/76 96 Room Air 01/08/24 08:06 36.3 C L 90 16 134/79 95 Room Air 01/08/24 08:01 98 H 01/08/24 03:18 36.4 C L 104 H 18 117/64 95 Room Air Laboratory Results Short CBC 01/07/24 01/07/24 01/08/24 Range/Units 17:31 20:47 05:11 WBC 10.44 6.45 (4.8-10.8) K/ul Hgb 13.6 L 13.3 L 12.4 L (14.0-18.0) g/dl Hct 41.6 L 39.4 L 37.1 L (42.0-52.0) % Plt Count 258 253 (130-400) K/uL BMP 01/07/24 01/08/24 17:31 05:11 Sodium 139 142 Potassium 3.4 L 3.9 Chloride 106 113 H Carbon Dioxide 21 23 BUN 13 9 Creatinine 1.24 0.97 Glucose 129 H 155 H Calcium 8.8 9.2 Liver Function 01/07/24 Range/Units 17:31 Total Bilirubin 0.3 (0.2-1.0) mg/dl AST 14 (13-39) U/L ALT 23 (7-52) U/L Alkaline Phosphatase 63 (34-104) U/L Albumin 3.9 (3.4-5.0) gm/dl Urine 01/07/24 Range/Units 22:20 Urine Color Yellow Urine Appearance Clear (Clear) Urine pH 5.5 (4.5-7.5) Ur Specific [place] 1.036 H (1.000-1.030) Urine Protein Negative (Negative) Urine Glucose (UA) Trace H (Negative)
[2024-01-08] MEDS: GADOBUTROL 65ML VIAL IV ONE (15:05)
--- NOTE | 2024-01-08 16:29 | Magnetic Resonance Report ---
MRI OF THE LUMBAR SPINE WITH AND WITHOUT CONTRAST CLINICAL HISTORY: Stroke like symptoms. Left arm and left leg weakness. COMPARISON STUDY: No previous studies for comparison. TECHNIQUE: Utilizing a 1.5 Ragini magnet and dedicated coil, multiplanar, multiecho imaging of the [facility] spine was performed before and after uneventful IV administration of 11.5 mL of Gadavist. FINDINGS: For purposes of numbering on this exam, the L5-S1 disc space is assigned to axial image 29 of 32. Beatriz tebral body heights are maintained. There is no lumbar spine fracture. No marrow edema or marrow repl acement is present. There is no abnormal enhancement within the lumbar canal. The conus terminates at the L1-L2 level. There is no intracanalicular mass or fluid collection. Paravertebral soft tissues a re unremarkable. L1-2: The central canal and neural foramen are patent. L2-3: The central canal and neural foramen are patent. L3-4: There is mild facet arthrosis and ligamentous hypertrophy. There is a left foraminal annular te ar with disc protrusion. The central canal and right neural foramen are patent. There is mild narrowi ng of the left neural foramen. L4-5: Moderate facet arthrosis is noted. There is ligamentous hypertrophy. There is mild disc bulge. A left foraminal annular tear is noted with disc protrusion. There is mild central canal narrowing. T here is mild narrowing of both lateral recesses. Moderate left and mild right neural foraminal stenos is is present. L5-S1: The central canal and neural foramen are patent. IMPRESSION: 1. No acute process within the lumbar spine by MRI. 2. Overall, mild degenerative disc disease and facet arthrosis within lumbar spine. Mild central viktoriya l stenosis at L4-L5. No severe central canal stenosis. 3. Multilevel neural foraminal stenosis, most pronounced at the L4-L5 level, as detailed above. ACT 112: Negative or not required by law. Electronically signed by: Edu Roper M.D. 01/08/2024 4:26 PM
[2024-01-08] MEDS: CLOPIDOGREL BISULFATE 75 MG TAB PO ONE (17:34)
--- NOTE | 2024-01-08 22:42 | Electrocardiogram Report ---
Test Reason : Blood Pressure : / mmHG Vent. Rate : 127 BPM Atrial Rate : 127 BPM P-R Int : 168 ms QRS Dur : 108 ms QT Int : 418 ms P-R-T Axes : 072 000 073 degrees QTc Int : 607 ms Sinus tachycardia Incomplete right bundle branch block Borderline ECG When compared with ECG of 19-DEC-2023 18:45, No significant change was found Confirmed by Sohail Castillo ([id number]) on 01/08/2024 10:42:08 PM Referred By: Adele CAVAZOS Confirmed By:Sohail Castillo
[2024-01-09 07:16] LABS: Basophils # (auto) 0.04 K/uL (0.00-0.20); Basophils % (auto) 0.8 %; Hemoglobin 14.1 g/dl (14.0-18.0); Immature Granulocytes # (auto) 0.07 K/uL (0.01-0.20); Immature Granulocytes % (auto) 1.4 %; Lymphocytes # (auto) 0.81 K/uL (1.20-3.40); Lymphocytes % (auto) 16.2 %; Mean Corpuscular Hgb Conc 33.6 g/dL (32.0-36.0); Mean Corpuscular Volume 86.4 fL (80.0-100.0); Mean Platelet Volume 9.4 fL (9.4-12.4); Monocytes # (auto) 0.47 K/uL (0.11-0.59); Monocytes % (auto) 9.4 %; Neutrophils # (auto) 3.41 K/uL (1.40-6.50); Neutrophils % (auto) 68.2 %; Platelet Count 249 K/uL (130-400); RDW Coefficient of Variation 13.4 % (11.5-14.5); RDW Standard Deviation 42.2 fL (36.4-46.3); Red Blood Count 4.86 M/uL (4.70-6.10)
[2024-01-09 07:32] LABS: BUN Creatinine Ratio 11.5 (10-20); Calcium 9.5 mg/dl (8.6-10.3); Creatinine Clr Calc Pharmacy 144.3 ml/min; Est GFR (Non-African American) 103.5 ml/min; Magnesium 2.1 mg/dl (1.7-2.4); Potassium 3.8 mmol/L (3.5-5.1)
[2024-01-09 07:34] LABS: D Dimer 4170 ug/L FEU (0-500)
[2024-01-09] MEDS: HEPARIN SOD 5,000 UNIT/0.5 ML VIAL SQ SCH (08:40)
[2024-01-09] MEDS: CLOPIDOGREL BISULFATE 75 MG TAB PO SCH (08:41)
--- NOTE | 2024-01-09 09:35 | Communication Note ---
Date of Service: January 09, 2024 Neurology Communication Note MRI spine and brain reviewed: there is no acute pathology to explain the patient's presenting symptoms Impression: Suspect psychogenic weakness, conversion disorder vs. malingering would be on differential depending on patient's personal gain Recommendations: - OK to continue DAPT x 3 wks as cannot exclude TIA, however given persistence of symptoms despite normal neuroimaging, TIA/stroke is exceedingly unlikely - Can remain on ASA 81mg daily afterwards - Reasonable to modify risk factors such that LDL < 70 and A1C <7% to decrease future cerebrovascular risk - Psychiatry consultation may be helpful
--- NOTE | 2024-01-09 10:04 | Ultrasound Report ---
BILATERAL LOWER EXTREMITY VENOUS DOPPLER HISTORY: Acute pain and swelling of the lower legs eleveated D dimer, R/O DVT COMPARISON STUDY: None. FINDINGS: There is normal compressibility, flow, and augmentation within the bilateral lower extremit y deep venous systems. IMPRESSION: No DVT within the right or left lower extremity. ACT 112: Negative or not required by law. Electronically signed by: Chase Toledo M.D. 01/09/2024 10:02 AM
[2024-01-09] MEDS: lisinopril 10 MG TAB PO SCH (10:09)
[2024-01-09] MEDS: METOPROLOL TARTRATE 25 MG TAB PO SCH (10:09)
--- NOTE | 2024-01-09 11:15 | Pharmacy Report ---
- Date of Service January 09, 2024 - Pharmacy CVA/TIA Medication Review Medications to Prevent Stroke handout has been added to the patients discharge packet. Antiplatelet(s) * aspirin 81 mg daily, plavix 75 mg daily Cholesterol * High intensity statin: atorvastatin 40 mg daily DVT Prophylaxis * Heparin SQ Therapeutic Anticoagulation * No history of Afib/Aflutter noted Type 2 Diabetes * Patient does not have T2DM
[2024-01-09] MEDS: GADOBUTROL 65ML VIAL IV ONE (13:39)
--- NOTE | 2024-01-09 14:44 | Magnetic Resonance Report ---
THORACIC SPINE MRI WITH AND WITHOUT CONTRAST HISTORY: Left arm and leg weakness. Stroke like symptoms TECHNIQUE: Multiplanar multisequence MRI of the thoracic spine was performed both before and after th e intravenous administration of contrast. COMPARISON: Chest CTA 12/19/2023. FINDINGS: Alignment and curvature are intact. No fracture or subluxation. No significant central canal or neura l foraminal narrowing. No disc herniations. No abnormal enhancement. The thoracic spinal cord is norm al in course, caliber, and signal intensity. Paravertebral soft tissues are unremarkable. There is 1. 8 cm right hepatic lobe cyst. IMPRESSION: No significant abnormality within the thoracic spine. ACT 112: Negative or not required by law. Electronically signed by: Rosendo Lui M.D. 01/09/2024 2:42 PM
--- NOTE | 2024-01-09 15:12 | Magnetic Resonance Report ---
MR cervical spine wo/w con HISTORY: 48 years-old Male Stroke like symptoms Acute neck pain with left upper extremity radicular symptoms. COMPARISON: Brain MRI 01/07/2024. TECHNIQUE: Multiplanar multisequence MRI of the cervical spine was obtained with and without IV contr ast. FINDINGS: [employer] images demonstrate no gross extraspinal abnormality. Study is motion degraded. Left cerebellar developmental venous anomaly incidentally noted. The imaged posterior fossa structure s are otherwise unremarkable. There is normal signal within the brainstem, cervical and imaged upper thoracic spinal cord. No additional abnormal enhancement. There is reversal of the normal cervical lo rdosis with kyphosis centered at C4-C5. Minimal likely degenerative related marrow edema at C3-C5. C2-C3: Uncovertebral hypertrophy with moderate facet arthrosis. Central canal and right neural forame n are patent. Mild left foraminal stenosis. C3-C4: Mild to moderate intervertebral disc space narrowing with prominent anterior endplate bridging osteophytosis. Uncovertebral hypertrophy with small posterior disc bulge. Moderate facet arthrosis. Flattening of the ventral thecal sac without significant central canal stenosis. Mild to moderate rig ht with moderate to severe left foraminal narrowing. C4-C5: Moderate intervertebral disc space narrowing with circumferential disc osteophyte complex and moderate facet arthrosis. Mild central canal stenosis with AP dimension of the central canal measurin g 9 mm. Severe left with moderate to severe right foraminal narrowing. C5-C6: Moderate intervertebral disc space narrowing with circumferential disc osteophyte complex and moderate facet arthrosis. Central canal is patent. Severe bilateral foraminal stenosis. C6-C7: Moderate intervertebral disc space narrowing with posterior disc osteophyte complex and modera te facet arthrosis. Mild central canal stenosis with AP dimension of the central canal measuring 9 mm . Severe bilateral foraminal narrowing. C7-T1: Mild intervertebral disc space narrowing with small posterior annular disc bulge. Moderate to severe facet arthrosis. The central canal is patent. Moderate left with mild right foraminal narrowin g. IMPRESSION: 1. Motion degraded exam. 2. Straightening of the normal cervical lordosis with multilevel discogenic degeneration and facet ar throsis as above resulting in multilevel neural foraminal narrowing. 3. Mild central canal stenosis at C4-C5 and C6-C7. 4. Normal signal of the cervical spinal cord. ACT 112: Negative or not required by law. The above report was generated using voice recognition software. It may contain grammatical, syntax o r spelling errors. Dictated: 01/09/2024 2:23 PM Transcribed: 01/09/2024 2:47 PM Kyle [id number] [email or web address] [id number] Electronically signed by: Chase Toledo M.D. 01/09/2024 3:10 PM
--- NOTE | 2024-01-09 15:38 | Hospitalist Progress Note ---
Date of Service January 09, 2024 Assessment & Plan (1) Acute left-sided weakness: Plan: Strokelike symptoms DD: Malingering/conversion disorder Prior CVA--patient unaware of history --MRI brain:No acute intracranial abnormality. A chronic lacunar infarct is noted in left basal ganglia. There is minimal microangiopathic disease. There is no hemorrhage or mass effect. There is no restricted diffusion to suggest acute ischemia. Roe-white matter differentiation is preserved. No extra-axial fluid collection is seen. The cerebellar tonsils are normal in configuration. --Head/Neck CTA:There is no hemorrhage, mass effect, or evidence of acute territorial ischemia by CT criteria. There is a 12 mm chronic-appearing lacunar infarct centered in the left basal ganglia. Correlate with the neurological history. If warranted this could be further assessed with MRI.Unremarkable CT angiogram of the brain. Unremarkable CT angiogram of the neck. --ECHO: Normal LV function. Moderate LVH. Normal RV size and function. Intact interatrial septum. Lipo hypertrophy of the interatrial septum. Atrial septum aneurysmal segment. No significant valvular disease. --Normal TSH, B12 levels -- Normal lipid panel --MRI cervical Spine:Motion degraded exam. Straightening of the normal cervical lordosis with multilevel discogenic degeneration and facet arthrosis as above resulting in multilevel neural foraminal narrowing. Mild central canal stenosis at C4-C5 and C6-C7. Normal signal of the cervical spinal cord. --MRI thoracic spine:No significant abnormality within the thoracic spine. --MRI lumbar Spine:No acute process within the lumbar spine by MRI. Overall, mild degenerative disc disease and facet arthrosis within lumbar spine. Mild central canal stenosis at L4-L5. No severe central canal stenosis. Multilevel neural foraminal stenosis, most pronounced at the L4-L5 level, as detailed above. --Homocystine levels pending --Needs Zio patch as outpatient --Continue dual antiplatelet therapy for 3 weeks and then transition to aspirin 81 mg daily only --Continue statin --Appreciate neurology input --PT OT, speech therapy eval --Needs follow-up with neurology on discharge -- Consulted psychiatry for possible psychogenic weakness Elevated D-dimer --CTA:There is no evidence of pulmonary embolus in the main, lobar, or proximal segmental pulmonary arteries. Evaluation of the peripheral branches is significantly degraded by motion artifact. --Venous Doppler:No DVT within the right or left lower extremity. Prediabetes HbA1c 5.8 Lactic acidosis Improved with IV fluids No clear source of infection Hypertension Continue lisinopril, metoprolol Monitor BP Hyperlipidemia Continue statin as above Chronic chest pain Outpatient [facility] cardiology eval contemplated Troponin negative Echo showed no signs of wall motion abnormality COPD No signs of exacerbation Continue home inhalers ADHD/Anxiety/Mood disorder Continue home medications DVT Px: Heparin SQ Code Status Full code Disposition [facility] as [facility] Admission and Anticipated Discharge Date Admission Date: January 09, 2024 Subjective Patient is seen and examined at bedside Reports having headache Feels left eye vision is slightly better today Also reports left leg weakness slowly improving States left upper extremity weakness is still persistent Denies any chest pain, dyspnea, dizziness, nausea, vomiting, abdominal pain Review of Systems Review of Systems: All systems reviewed & are unremarkable except as noted in Subjective Physical Exam Physical Exam: Physical Exam: Vitals signs as noted above General Appearance:Obese, no apparent distress Head: normocephalic, Atraumatic Eyes: normal inspection, EOMI, + left eye visual changes Neck: supple, Trachea midline Respiratory/Chest: Normal breath sounds, CTA, No accessory muscle use Cardiovascular: S1, S2, No murmur Abdomen/GI:Soft, Non tender, Bowel sounds present Extremities/Musculoskeletal:normal inspection, no edema Neurologic/Psych:AAOX3, left UR 1/5, LLE 2-3/5 Skin: normal color, warm Results & Data Results & Data Vital Signs (Past 12 Hours) Vital Signs Temp Pulse Pulse Resp BP Pulse Ox O2 Del Method 01/09/24 11:40 36.8 C 99 H 16 132/87 95 Room Air 01/09/24 07:47 36.5 C 85 16 150/92 H 96 Room Air 01/09/24 07:45 Room Air 01/09/24 07:14 69 Laboratory Results Short CBC 01/09/24 Range/Units 06:45 WBC 5.00 (4.8-10.8) K/ul Hgb 14.1 (14.0-18.0) g/dl Hct 42.0 (42.0-52.0) % Plt Count 249 (130-400) K/uL BMP 01/09/24 06:45 Sodium 141 Potassium 3.8 Chloride 108 H Carbon Dioxide 26 BUN 10 Creatinine 0.87 Glucose 96 Calcium 9.5
[2024-01-09] MEDS: ACETAMINOPHEN 325 MG TAB PO PRN (21:45)
[2024-01-10 06:29] LABS: Basophils # (auto) 0.05 K/uL (0.00-0.20); Basophils % (auto) 0.9 %; Eosinophils # (auto) 0.31 K/uL (0.00-0.50); Eosinophils % (auto) 5.3 %; Hematocrit (blood only) 48.1 % (42.0-52.0); Hemoglobin 15.9 g/dl (14.0-18.0); Immature Granulocytes # (auto) 0.04 K/uL (0.01-0.20); Immature Granulocytes % (auto) 0.7 %; Lymphocytes # (auto) 0.99 K/uL (1.20-3.40); Lymphocytes % (auto) 16.9 %; Mean Corpuscular Hemoglobin 29.1 pg (25.0-34.0); Mean Corpuscular Hgb Conc 33.1 g/dL (32.0-36.0); Mean Corpuscular Volume 88.1 fL (80.0-100.0); Mean Platelet Volume 9.5 fL (9.4-12.4); Monocytes # (auto) 0.67 K/uL (0.11-0.59); Monocytes % (auto) 11.4 %; Neutrophils % (auto) 64.8 %; Platelet Count 276 K/uL (130-400); RDW Coefficient of Variation 13.4 % (11.5-14.5); RDW Standard Deviation 42.7 fL (36.4-46.3); Red Blood Count 5.46 M/uL (4.70-6.10); White Blood Count 5.86 K/ul (4.8-10.8)
[2024-01-10 07:01] LABS: Calcium 9.9 mg/dl (8.6-10.3); Creatinine Clr Calc Pharmacy 132.1 ml/min; Est GFR (African American) 110.8 ml/min; Est GFR (Non-African American) 95.6 ml/min; Potassium 3.9 mmol/L (3.5-5.1)
--- NOTE | 2024-01-10 09:51 | Psychiatric Consultation ---
Date of Consultation January 10, 2024 Impression / Recommendations Impression Mr. Srinivasan provided a detailed explanation of his past and current symptoms. His description is consistent with symptoms of PTSD anxiety and depression. There was no evidence of psychosis, natasha, or hypomania. On examination, he presents some cognitive difficulties including poor attention and poor recent memory. To target the symptoms of depression and anxiety and PTSD it is recommended to increase the dose of Effexor. We discuss potential side effects (including BP elevation) and risk for discontinuation syndrome. Mr. Srinivasan agreed to increase the dose of this medication. He denied experiencing any side effects with the current dose. To target anxiety and hyperreactivity to the environment (likely related to PTSD) we discuss guanfacine or clonidine. Guanfacine is typically available in the present systems. We discuss potential side effects (including risk for hypotension). Mr. Srinivasan agreed to try this medication. Mr. Srinivasan's B12 level has been reported at 193 pg/mL. Although this is reported as within range by the lab, it is recommended to maintain a level between 400- 900 to prevent neuropsychiatric symptoms. I recommend IM supplementation. 1000 mcg IM weekly for 4 weeks and continue 1000 mcg IM monthly if clinically indicated. Concerns regarding somatization disorder: 1. Mr. Srinivasan has 1 or more symptoms of altered involuntary motor or sensory function. However, he has elevated cardiovascular risk could explain at least in part the episode that he experience while in care home. 2. The treatment team and neurology biztalk consultant have pointed out that the clinical findings are incompatible with the neurological deficit and the symptoms or deficit has caused clinically significant distress to Mr. Srinivasan. I have considered conversion disorderfunctional neurological symptoms disorder, acute episode. There was no evidence during the evaluation of purposeful falsification of the symptoms or deceptive behavior. It is important to target the symptoms of depression and anxiety and to provide B12 supplementation to later reevaluate his somatic complaints. (1) Post traumatic stress disorder (PTSD): (2) Major depression, recurrent: (3) Generalized anxiety disorder: Plan Recommendations: 1. Tenex 1 mg p.o. at bedtime (if approved by primary team) 2. Effexor 225 mg p.o. every morning, starting tomorrow. 3. B12 1000 mcg IM 1 dose now. And a recommendation to continue weekly for 4 weeks. 4. Psychiatry will continue to monitor to assess response to medication changes. CPT Code Overall, I spent a total of 80 minutes with this case, including review of chart,review of records,direct evaluation of the patient,counseling the patient, and documentation. Psych History Identifying Data SAMMIE SRINIVASAN is a 48-year-old M who currently in care home for parole violation who was admitted on 01/09/24 14:12 to the medical floor due to self-reported left side hemiparesis. He has a history of PTSD, Anxiety, Depression and ADHD as well as chronic medical conditions including hypertension, central obesity, anemia, chronic lacunar infarct is noted in left basal ganglia and mild central canal stenosis at C4-C5 and C6-C7(found by imaging during this hospitalization), and elevated D-dimer (on 01/09/24). Psychiatry was consulted to evaluated for possible psychogenic etiology of the hemiparesis. Chief Complaint "My anxiety is through the roof". History of Present Illness Mr. Srinivasan presented cooperative and forthcoming with information. He reported that he had been feeling anxious and depressed since before the start of the incarceration. He was incarcerated in August on a parole violation. Mr. Srinivasan indicated that the care home environment contributed to worsening his anxiety and more recently learning about the of his brother while being incarcerated worsened his depression. 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 He described episodes of panic sensation with increased heart rate, increased perspiration, racing thoughts, intense fear. These episodes started a few years ago he is able to pinpoint the very first episode he experienced during 22 March celebration while shopping at a local store. Mr. Srinivasan described symptoms consistent with a goraphobia. The panic episodes have been less prominent but he continues to experience heightened anxiety throughout the day, depressed mood, decreased energy, poor memory and concentration, a constant state of hyperal hyperalert, nightmares about previous trauma, and poor impulse control. Mr. Srinivasan described experiencing racing thoughts as thoughts about the future running fast in his head. He denied a history of decreased need for sleep, psychosis, drug use, or violent behavior. When asked about the subjective sensation of weakness, he described waking up in his cell with this sensation and experiencing fear at the realization that he was having "trouble with my arm." He acknowledged being preoccupied about his health. Mr. Srinivasan shared that he was taking testosterone in the [place] and had requested to continue this prescription in the present but it was denied to him. During the interview, he appeared interested in exploring avenues to optimize his psychiatric treatment. He also appeared hopeful about the future and shared that he is expected to be release from care home in February. Past Psychiatric History Previous Psych History: Mr. Srinivasan indicated that he was diagnosed with ADHD in childhood and treated with stimulants at different times. He is currently not receiving medications for this condition. He was diagnosed with PTSD after returning from [place] and was treated with antidepressants to target symptoms of depression and anxiety. He described episodes of increased impulsivity but no clear natasha. He denied any history of using drugs or alcohol except for "maybe marijuana 3 times in my life, I did not like how it made me feel." Outpatient Services: Mr. Srinivasan is receiving medications for depression and anxiety at the present: Effexor 150 mg every morning, trazodone 100mg HS, and Hydroxyzine as needed. Past Medication Trials: Duloxetine (Cymbalta)not effective. Prazosinunknown if prescribed for mental health or other condition. Allergies Allergy/AdvReac Type Severity Reaction Status Date / Time aripiprazole [From [facility]] Allergy Unknown ON SCI Verified 01/07/24 19:09 [facility] MED LIST pollen extracts Allergy Unknown ON SCI Verified 01/07/24 19:09 [facility] MED LIST Home Medications Medication Instructions Recorded Confirmed Type metoprolol tartrate 25 mg tablet 25 mg PO DAILY 10/26/23 01/07/24 History hydroxyzine pamoate 50 mg capsule 50 mg PO BID 10/27/23 01/07/24 History levalbuterol tartrate 45 2 inh inhalation QID PRN Shortness 12/19/23 01/07/24 History mcg/actuation aerosol inhaler Of Breath Or Wheezing (Xopenex HFA) lisinopril 10 mg tablet 10 mg PO DAILY 12/19/23 01/07/24 History pregabalin 150 mg capsule (Lyrica) 150 mg PO BID 12/19/23 01/07/24 History terbinafine HCl 1 % topical cream 1 applic topical BID 12/19/23 01/07/24 History trazodone 100 mg tablet 100 mg PO HS 12/19/23 01/07/24 History venlafaxine 150 mg 150 mg PO DAILY 12/19/23 01/07/24 History capsule,extended release 24 hr (Effexor XR) Fluticasone Nasal Spr 0.05% 1 spray intranasal BID 01/07/24 01/07/24 History fluticasone 500 mcg-salmeterol 50 1 inh inhalation BID 01/07/24 01/07/24 History mcg/dose blistr powdr for inhalation (Wixela Inhub) Patient History Medical History COPD (chronic obstructive pulmonary disease) Family History (Updated 01/10/24 @ 12:55 by Fatmata Blair MD) Other Diabetes Denies family history of Bipolar disorder Social History Smoking Status: Never smoker Second Hand Exposure: No; Do You Dip or Chew Tobacco: No; Hx Alcohol Use: Yes Alcohol type: beer Hx Substance Use: No Preferred Language: Telugu Communication Ability: Effective Chairlift Operator Required: No Beliefs That Will Affect Care: None Current Living Situation: Other Current Living Situation Comment: [facility] Other Information That Helps Us Care for You: No Feels Safe at Home: Yes Safety Concerns: Feels Safe At This Time Assistive Devices: None Physical Exam 2 Psychiatric: Orientation: alert and oriented x 3 Apperance: + disheveled (Not wearing a shirt.) Eye Contact: good eye contact Motor Behavior: no abnormal motor movements (shackled to the bed (as per policy). 2 officers at bedside.) Speech: no pressured speech (fast but not pressured) Affect: + anxious affect Mood: + depressed mood and + anxious mood Thought Process: goal directed thought process, linear/logical thought process and clear/coherent thought process Thought Content: no delusions and no hopelessness Suicidal Thoughts: denies suicidal thoughts Homicidal Thoughts: denies homicidal thoughts Hallucinations: no auditory hallucinations and no visual hallucinations Cognition: + recent memory not intact (Unable to recall 2 out of 3 words in 5 minutes.) Estimated Intelligence: average estimated intelligence Insight: + fair insight Judgment: + fair judgement Vital Signs (Past 24 Hours): Last Vital Signs Temp 36.3 C L 01/10/24 07:37 Pulse 72 01/10/24 07:37 Resp 18 04/23/24 07:37 BP 128/87 01/10/24 07:37 Pulse Ox 95 01/10/24 07:37 O2 Del Method Room Air 01/10/24 07:37 Results & Data (PSY) Laboratory Results Labs 01/07/24 01/07/24 01/07/24 17:31 17:35 17:40 WBC 10.44 RBC 4.75 Hgb 13.6 L POC Hgb 13.6 L Hct 41.6 L POC Hct 40 L MCV 87.6 MCH 28.6 MCHC 32.7 RDW Std Deviation 41.4 RDW Coeff of Boris 12.9 Plt Count 258 MPV 9.4 Immature Gran % (Auto) 0.6 Neut % (Auto) 91.1 Lymph % (Auto) 2.5 Fannin % (Auto) 5.6 Eos % (Auto) 0.0 Baso % (Auto) 0.2 Reticulocyte % (Auto) Neut # (Auto) 9.52 H Lymph # (Auto) 0.26 L Fannin # (Auto) 0.58 Eos # (Auto) 0.00 Baso # (Auto) 0.02 Reticulocyte # Immature Gran # (Auto) 0.06 PT 11.4 INR 1.0 APTT 26 PTT Ratio 0.9 D-Dimer POC Sodium 141 Sodium 139 POC Potassium 3.4 Potassium 3.4 L POC Chloride 103 Chloride 106 Carbon Dioxide 21 POC Total CO2 20 L Anion Gap 12 H POC Anion Gap 23.0 POC BUN 11 BUN 13 Creatinine 1.24 POC Creatinine 1.2 Est Cr Clr Drug Dosing 92.9 Est GFR ( Amer) 80.3 Est GFR (Non-Af Amer) 69.3 BUN/Creatinine Ratio 10.5 Glucose 129 H POC Glucose 122 H POC Glucose (other) 122 H Estimat Average Glucose 123 Hemoglobin A1c 5.9 H Lactate Calcium 8.8 POC Ioniz Calcium Dez 1.18 Magnesium 1.8 Iron Transferrin Ferritin Total Bilirubin 0.3 AST 14 ALT 23 Alkaline Phosphatase 63 Troponin I High Sens 8.9 Total Protein 6.2 Albumin 3.9 Globulin 2.3 L Albumin/Globulin Ratio 1.7 Triglycerides Cholesterol LDL Cholesterol, Calc VLDL Cholesterol, Calc HDL Cholesterol Cholesterol/HDL Ratio Vitamin B12 Folate TSH 0.316 Urine Color Urine Appearance Urine pH Ur Specific [place] Urine Protein Urine Glucose (UA) Urine Ketones Urine Blood Urine Nitrite Urine Bilirubin Urine Urobilinogen Ur Leukocyte Esterase Nasal Screen MRSA (PCR) Urine Opiates Screen Ur Methadone, Qual Urine Barbiturates Ur Phencyclidine (PCP) U Amphetamin/Meth Scrn MDMA (Ecstasy) Screen U Benzodiazepines Scrn Ur Cocaine Metabolite U Marijuana (THC) Screen Blood Type Antibody Screen 01/07/24 01/07/24 01/08/24 20:47 22:20 00:23 WBC RBC Hgb 13.3 L POC Hgb Hct 39.4 L POC Hct MCV MCH MCHC RDW Std Deviation RDW Coeff of Boris Plt Count MPV Immature Gran % (Auto) Neut % (Auto) Lymph % (Auto) Fannin % (Auto) Eos % (Auto) Baso % (Auto) Reticulocyte % (Auto) 1.60 Neut # (Auto) Lymph # (Auto) Fannin # (Auto) Eos # (Auto) Baso # (Auto) Reticulocyte # 0.070 Immature Gran # (Auto) PT INR APTT PTT Ratio D-Dimer POC Sodium Sodium POC Potassium Potassium POC Chloride Chloride Carbon Dioxide POC Total CO2 Anion Gap POC Anion Gap POC BUN BUN Creatinine POC Creatinine Est Cr Clr Drug Dosing Est GFR ( Amer) Est GFR (Non-Af Amer) BUN/Creatinine Ratio Glucose POC Glucose POC Glucose (other) Estimat Average Glucose Hemoglobin A1c Lactate 4.1 H* 3.2 H* Calcium POC Ioniz Calcium Dez Magnesium Iron 33 L Transferrin 213 Ferritin 103.2 Total Bilirubin AST ALT Alkaline Phosphatase Troponin I High Sens Total Protein Albumin Globulin Albumin/Globulin Ratio Triglycerides Cholesterol LDL Cholesterol, Calc VLDL Cholesterol, Calc HDL Cholesterol Cholesterol/HDL Ratio Vitamin B12 193 Folate > 22.30 TSH Urine Color Yellow Urine Appearance Clear Urine pH 5.5 Ur Specific [place] 1.036 H Urine Protein Negative Urine Glucose (UA) Trace H Urine Ketones Negative Urine Blood Negative Urine Nitrite Negative Urine Bilirubin Negative Urine Urobilinogen Negative Ur Leukocyte Esterase Negative Nasal Screen MRSA (PCR) Urine Opiates Screen Neg Ur Methadone, Qual Neg Urine Barbiturates Neg Ur Phencyclidine (PCP) Neg U Amphetamin/Meth Scrn Neg MDMA (Ecstasy) Screen Pos H U Benzodiazepines Scrn Neg Ur Cocaine Metabolite Neg U Marijuana (THC) Screen Neg Blood Type O Positive Antibody Screen NEGATIVE 01/08/24 01/08/24 01/08/24 02:40 05:11 09:50 WBC 6.45 RBC 4.26 L Hgb 12.4 L POC Hgb Hct 37.1 L POC Hct MCV 87.1 MCH 29.1 MCHC 33.4 RDW Std Deviation 42.4 RDW Coeff of Boris 13.2 Plt Count 253 MPV 9.5 Immature Gran % (Auto) 0.5 Neut % (Auto) 83.6 Lymph % (Auto) 7.3 Fannin % (Auto) 8.2 Eos % (Auto) 0.2 Baso % (Auto) 0.2 Reticulocyte % (Auto) Neut # (Auto) 5.40 Lymph # (Auto) 0.47 L [place] # (Auto) 0.53 Eos # (Auto) 0.01 Baso # (Auto) 0.01 Reticulocyte # Immature Gran # (Auto) 0.03 PT INR APTT PTT Ratio D-Dimer POC Sodium Sodium 142 POC Potassium Potassium 3.9 POC Chloride Chloride 113 H Carbon Dioxide 23 POC Total CO2 Anion Gap 6 POC Anion Gap POC BUN BUN 9 Creatinine 0.97 POC Creatinine Est Cr Clr Drug Dosing 129.4 Est GFR ( Amer) 108.1 Est GFR (Non-Af Amer) 93.2 BUN/Creatinine Ratio 9.3 L Glucose 155 H POC Glucose POC Glucose (other) Estimat Average Glucose 120 Hemoglobin A1c 5.8 H Lactate 2.6 H* 2.0 Calcium 9.2 POC Ioniz Calcium Dez Magnesium Iron Transferrin Ferritin Total Bilirubin AST ALT Alkaline Phosphatase Troponin I High Sens Total Protein Albumin Globulin Albumin/Globulin Ratio Triglycerides 133 Cholesterol 144 LDL Cholesterol, Calc 74 VLDL Cholesterol, Calc 27 HDL Cholesterol 43 Cholesterol/HDL Ratio 3.3 Vitamin B12 Folate TSH Urine Color Urine Appearance Urine pH Ur Specific [place] Urine Protein Urine Glucose (UA) Urine Ketones Urine Blood Urine Nitrite Urine Bilirubin Urine Urobilinogen Ur Leukocyte Esterase Nasal Screen MRSA (PCR) Negative Urine Opiates Screen Ur Methadone, Qual Urine Barbiturates Ur Phencyclidine (PCP) U Amphetamin/Meth Scrn MDMA (Ecstasy) Screen U Benzodiazepines Scrn Ur Cocaine Metabolite U Marijuana (THC) Screen Blood Type Antibody Screen 01/09/24 01/10/24 01/10/24 06:45 05:59 10:13 WBC 5.00 5.86 RBC 4.86 5.46 Hgb 14.1 15.9 POC Hgb Hct 42.0 48.1 POC Hct MCV 86.4 88.1 MCH 29.0 29.1 MCHC 33.6 33.1 RDW Std Deviation 42.2 42.7 RDW Coeff of Boris 13.4 13.4 Plt Count 249 276 MPV 9.4 9.5 Immature Gran % (Auto) 1.4 0.7 Neut % (Auto) 68.2 64.8 Lymph % (Auto) 16.2 16.9 Fannin % (Auto) 9.4 11.4 Eos % (Auto) 4.0 5.3 Baso % (Auto) 0.8 0.9 Reticulocyte % (Auto) Neut # (Auto) 3.41 3.80 Lymph # (Auto) 0.81 L 0.99 L Fannin # (Auto) 0.47 0.67 H Eos # (Auto) 0.20 0.31 Baso # (Auto) 0.04 0.05 Reticulocyte # Immature Gran # (Auto) 0.07 0.04 PT INR APTT PTT Ratio D-Dimer 4170 H* POC Sodium Sodium 141 138 POC Potassium Potassium 3.8 3.9 POC Chloride Chloride 108 H 106 Carbon Dioxide 26 23 POC Total CO2 Anion Gap 7 9 POC Anion Gap POC BUN BUN 10 19 Creatinine 0.87 0.95 POC Creatinine Est Cr Clr Drug Dosing 144.3 132.1 Est GFR ( Amer) 120.0 110.8 Est GFR (Non-Af Amer) 103.5 95.6 BUN/Creatinine Ratio 11.5 20.0 Glucose 96 97 POC Glucose POC Glucose (other) Estimat Average Glucose Hemoglobin A1c Lactate Calcium 9.5 9.9 POC Ioniz Calcium Dez Magnesium 2.1 Iron Transferrin Ferritin Total Bilirubin AST ALT Alkaline Phosphatase Troponin I High Sens 6.7 Total Protein Albumin Globulin Albumin/Globulin Ratio Triglycerides Cholesterol LDL Cholesterol, Calc VLDL Cholesterol, Calc HDL Cholesterol Cholesterol/HDL Ratio Vitamin B12 Folate TSH Urine Color Urine Appearance Urine pH Ur Specific [place] Urine Protein Urine Glucose (UA) Urine Ketones Urine Blood Urine Nitrite Urine Bilirubin Urine Urobilinogen Ur Leukocyte Esterase Nasal Screen MRSA (PCR) Urine Opiates Screen Ur Methadone, Qual Urine Barbiturates Ur Phencyclidine (PCP) U Amphetamin/Meth Scrn MDMA (Ecstasy) Screen U Benzodiazepines Scrn Ur Cocaine Metabolite U Marijuana (THC) Screen Blood Type Antibody Screen Diagnostic Findings Posttraumatic stress disorder, chronic Generalized anxiety disorder Functional neurological symptoms disorder, provisional Psychological factors affecting other medical conditions B12 deficiency Medications Administered Acetaminophen (Acetaminophen 325 Mg Tab) 650 mg PO QID PRN PRN Reason: pain/fever Stop: 02/06/24 20:43 Last Admin: 01/09/24 21:45 Dose: 650 mg Documented By: YAEL Aspirin (Aspirin 81 Mg Ectab) 81 mg PO [facility] Stop: 02/07/24 08:59 Last Admin: 01/10/24 08:50 Dose: 81 mg Documented By: Admin: 01/09/24 08:41 Dose: 81 mg Documented By: Admin: 01/08/24 09:41 Dose: 81 mg Documented By: MARK Atorvastatin Calcium (Atorvastatin 40 Mg Tab) 40 mg PO [facility] Stop: 02/07/24 08:59 Last Admin: 01/10/24 08:50 Dose: 40 mg Documented By: Admin: 01/09/24 08:40 Dose: 40 mg Documented By: Admin: 01/08/24 09:41 Dose: 40 mg Documented By: MARK Clopidogrel Bisulfate (Clopidogrel Bisulfate 75 Mg Tab) 75 mg PO [facility] Stop: 02/08/24 08:59 Last Admin: 01/10/24 08:50 Dose: 75 mg Documented By: Admin: 01/09/24 08:41 Dose: 75 mg Documented By: BAL Fluticasone Propionate (Fluticasone Propionate Na Spr 16 Gm Btl) 1 sprays NA BID [facility] Stop: 02/07/24 08:59 Last Admin: 01/10/24 08:50 Dose: 1 sprays Documented By: Admin: 01/09/24 21:47 Dose: 1 sprays Documented By: Admin: 01/09/24 08:40 Dose: 1 sprays Documented By: Admin: 01/08/24 21:13 Dose: 1 sprays Documented By: Admin: 01/08/24 09:43 Dose: 1 sprays Documented By: MARK Fluticasone/Vilanterol (Fluticasone/Vilanterol 100/25mcg 14 Puffs/Inhaler) 1 puffs INH HS [facility] Stop: 02/07/24 00:59 Last Admin: 01/09/24 21:48 Dose: 1 puffs Documented By: Admin: 01/08/24 21:14 Dose: 1 puffs Documented By: Admin: 01/08/24 02:22 Dose: Not Given Documented By: RAJIV Heparin Sodium (Porcine) (Heparin Sod 5,000 Unit/0.5 Ml Vial) 5,000 units SQ Q12 [facility] Stop: 02/08/24 08:59 Last Admin: 01/10/24 08:50 Dose: 5,000 units Documented By: Admin: 01/09/24 21:48 Dose: 5,000 units Documented By: Admin: 01/09/24 08:40 Dose: 5,000 units Documented By: BAL Hydroxyzine HCl (Hydroxyzine Hcl 25 Mg Tab) 50 mg PO BID [facility] Stop: 02/07/24 00:44 Last Admin: 01/10/24 08:49 Dose: 50 mg Documented By: Admin: 01/09/24 21:46 Dose: 50 mg Documented By: Admin: 01/09/24 08:40 Dose: 50 mg Documented By: Admin: 01/08/24 21:13 Dose: 50 mg Documented By: Admin: 01/08/24 09:43 Dose: 50 mg Documented By: Admin: 01/08/24 01:23 Dose: 50 mg Documented By: RAJIV Lisinopril (Lisinopril 10 Mg Tab) 10 mg PO DAILY [facility] Stop: 02/08/24 08:59 Last Admin: 01/10/24 08:49 Dose: 10 mg Documented By: Admin: 01/09/24 10:09 Dose: 10 mg Documented By: BAL Lorazepam (Lorazepam 0.5 Mg Tab) 0.5 mg PO TID PRN PRN Reason: Anxiety Stop: 02/06/24 20:43 Last Admin: 01/09/24 12:14 Dose: 0.5 mg Documented By: Admin: 01/08/24 14:40 Dose: 0.5 mg Documented By: MARK Metoprolol Tartrate (Metoprolol Tartrate 25 Mg Tab) 25 mg PO BID [facility] Stop: 02/08/24 08:59 Last Admin: 01/10/24 08:49 Dose: 25 mg Documented By: Admin: 01/09/24 21:47 Dose: 25 mg Documented By: Admin: 01/09/24 10:09 Dose: 25 mg Documented By: BAL Pregabalin (Pregabalin 150 Mg Cap) 150 mg PO BID [facility] Stop: 02/07/24 00:44 Last Admin: 01/10/24 08:49 Dose: 150 mg Documented By: Admin: 01/09/24 21:46 Dose: 150 mg Documented By: Admin: 01/09/24 10:09 Dose: 150 mg Documented By: Admin: 01/08/24 21:13 Dose: 150 mg Documented By: Admin: 01/08/24 09:45 Dose: 150 mg Documented By: Admin: 01/08/24 01:45 Dose: 150 mg Documented By: RAJIV Trazodone HCl (Trazodone Hcl 100 Mg Tab) 100 mg PO HS [facility] Stop: 02/07/24 00:44 Last Admin: 01/09/24 21:47 Dose: 100 mg Documented By: Admin: 01/08/24 21:13 Dose: 100 mg Documented By: Admin: 01/08/24 01:24 Dose: 100 mg Documented By: RAJIV Venlafaxine HCl (Venlafaxine Hcl Xr 150 Mg Capxr) 150 mg PO DAILY [facility] Stop: 02/07/24 08:59 Last Admin: 01/10/24 08:50 Dose: 150 mg Documented By: Admin: 01/09/24 08:41 Dose: 150 mg Documented By: Admin: 01/08/24 09:41 Dose: 150 mg Documented By: AMRK [place] [address] IN/OBS CONSULT LVL 5,80M Patient Type New History Expanded Problem Focused Exam Problem Focused Medical Decision Making Moderate Complexity Diagnoses Post traumatic stress disorder (PTSD) F43.10 Major depression, recurrent F33.9 Generalized anxiety disorder F41.1 Time Spent (min) 80
[2024-01-10] MEDS ORDERED: NITROGLYCERIN SL 0.4 MG/TAB TAB SL PRN (10:15)
[2024-01-10] MEDS: PERFLUTREN LIPID MICROSPHERE (DEFINITY) IV ONE (10:52)
--- NOTE | 2024-01-10 13:21 | Electrocardiogram Report ---
Test Reason : Blood Pressure : / mmHG Vent. Rate : 080 BPM Atrial Rate : 080 BPM P-R Int : 180 ms QRS Dur : 100 ms QT Int : 394 ms P-R-T Axes : 040 009 057 degrees QTc Int : 454 ms Normal sinus rhythm Normal ECG When compared with ECG of 07-JAN-2024 17:31, Vent. rate has decreased BY 47 BPM Confirmed by Mathew Lemos ([id number]) on 01/10/2024 1:20:54 PM Referred By: Adele [facility] Confirmed By:Mathew Lemos
--- NOTE | 2024-01-10 15:34 | Hospitalist Progress Note ---
Date of Service January 10, 2024 Assessment & Plan (1) Acute left-sided weakness: Plan: Strokelike symptoms DD: Malingering/conversion disorder Prior CVA--patient unaware of history --MRI brain:No acute intracranial abnormality. A chronic lacunar infarct is noted in left basal ganglia. There is minimal microangiopathic disease. There is no hemorrhage or mass effect. There is no restricted diffusion to suggest acute ischemia. Roe-white matter differentiation is preserved. No extra-axial fluid collection is seen. The cerebellar tonsils are normal in configuration. --Head/Neck CTA:There is no hemorrhage, mass effect, or evidence of acute territorial ischemia by CT criteria. There is a 12 mm chronic-appearing lacunar infarct centered in the left basal ganglia. Correlate with the neurological history. If warranted this could be further assessed with MRI.Unremarkable CT angiogram of the brain. Unremarkable CT angiogram of the neck. --ECHO: Normal LV function. Moderate LVH. Normal RV size and function. Intact interatrial septum. Lipo hypertrophy of the interatrial septum. Atrial septum aneurysmal segment. No significant valvular disease. --Normal TSH, B12 levels -- Normal lipid panel --MRI cervical Spine:Motion degraded exam. Straightening of the normal cervical lordosis with multilevel discogenic degeneration and facet arthrosis as above resulting in multilevel neural foraminal narrowing. Mild central canal stenosis at C4-C5 and C6-C7. Normal signal of the cervical spinal cord. --MRI thoracic spine:No significant abnormality within the thoracic spine. --MRI lumbar Spine:No acute process within the lumbar spine by MRI. Overall, mild degenerative disc disease and facet arthrosis within lumbar spine. Mild central canal stenosis at L4-L5. No severe central canal stenosis. Multilevel neural foraminal stenosis, most pronounced at the L4-L5 level, as detailed above. --Homocystine levels pending --Needs Zio patch as outpatient --Continue dual antiplatelet therapy for 3 weeks and then transition to aspirin 81 mg daily only --Continue statin --Appreciate neurology input --PT OT, speech therapy eval --Needs follow-up with neurology on discharge -- Consulted psychiatry for possible psychogenic weakness -- Left-sided hemiparesis improving Concern for somatization disorder Generalized anxiety disorder PTSD Depression Started on Tenex 1 mg at bedtime Effexor dose increased to 25 mg daily Received vitamin B-12 injection. Needs weekly for 4 weeks Appreciate psychiatry input Chest pain Troponins negative No signs of ischemia on EKG NTG PRN Check resting echo Consider cardiology evaluation if persistent Elevated D-dimer --CTA:There is no evidence of pulmonary embolus in the main, lobar, or proximal segmental pulmonary arteries. Evaluation of the peripheral branches is significantly degraded by motion artifact. --Venous Doppler:No DVT within the right or left lower extremity. Prediabetes HbA1c 5.8 Lactic acidosis Improved with IV fluids No clear source of infection Hypertension Continue lisinopril, metoprolol Monitor BP Hyperlipidemia Continue statin as above Chronic chest pain Outpatient [facility] cardiology eval contemplated Troponin negative Echo showed no signs of wall motion abnormality COPD No signs of exacerbation Continue home inhalers ADHD/Anxiety/Mood disorder Continue home medications DVT Px: Heparin SQ Code Status Full code Disposition [facility] facility as able Admission and Anticipated Discharge Date Admission Date: January 09, 2024 Subjective Patient is seen and examined at bedside States having left-sided chest pain radiating to left upper extremity Left-sided weakness slowly improving Left visual change unchanged from yesterday No distress on exam No other complaints Denies any dyspnea, dizziness, nausea, vomiting, abdominal pain Review of Systems Review of Systems: All systems reviewed & are unremarkable except as noted in Subjective Physical Exam Physical Exam: Physical Exam: Vitals signs as noted above General Appearance:Obese, no apparent distress Head: normocephalic, Atraumatic Eyes: normal inspection, EOMI, + left eye visual changes Neck: supple, Trachea midline Respiratory/Chest: Normal breath sounds, CTA, No accessory muscle use Cardiovascular: S1, S2, No murmur Abdomen/GI:Soft, Non tender, Bowel sounds present Extremities/Musculoskeletal:normal inspection, no edema Neurologic/Psych:AAOX3, left UR 1/5, LLE 2-3/5 Skin: normal color, warm Results & Data Results & Data Vital Signs (Past 12 Hours) Vital Signs Temp Pulse Pulse Resp BP BP Pulse Ox 01/10/24 14:48 69 01/10/24 11:14 36.4 C L 83 18 128/88 93 01/10/24 09:44 36.3 C L 85 16 135/84 94 01/10/24 07:37 36.3 C L 72 18 128/87 95 01/10/24 07:24 63 O2 Del Method 01/10/24 14:48 01/10/24 11:14 Room Air 01/10/24 09:44 Room Air 01/10/24 07:37 Room Air 01/10/24 07:24 Laboratory Results Short CBC 01/10/24 Range/Units 05:59 WBC 5.86 (4.8-10.8) K/ul Hgb 15.9 (14.0-18.0) g/dl Hct 48.1 (42.0-52.0) % Plt Count 276 (130-400) K/uL BMP 01/10/24 05:59 Sodium 138 Potassium 3.9 Chloride 106 Carbon Dioxide 23 BUN 19 Creatinine 0.95 Glucose 97 Calcium 9.9
[2024-01-10] MEDS: CYANOCOBALAMIN 1000 MCG/ML VIAL IM ONE (15:37)
[2024-01-10] MEDS: ACETAMINOPHEN 1,000 MG/100 ML VIAL IV STA (19:20)
[2024-01-10] MEDS: guanFACINE HCL 1 MG TAB PO SCH (21:34)
[2024-01-11 09:22] LABS: Creatinine Clr Calc Pharmacy 109.7 ml/min; Est GFR (African American) 90.8 ml/min; Est GFR (Non-African American) 78.4 ml/min
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
[2024-01-11] MEDS: VENLAFAXINE HCL XR 75 MG CAPXR PO SCH (09:59)
--- NOTE | 2024-01-11 10:55 | Hospitalist Progress Note ---
Date of Service January 11, 2024 Assessment & Plan (1) Acute left-sided weakness: Plan: Strokelike symptoms with history of Prior CVA--patient unaware of history No new stroke identified on relevant investigations as below DD: Malingering/conversion disorder Left-sided weakness have been improving Left eye visual symptoms have been improving to Appreciate neurology input and recommendation_ --Needs Zio patch as outpatient --Continue dual antiplatelet therapy for 3 weeks and then transition to aspirin 81 mg daily only --Continue statin Remains medically stable with improvement of current strokelike symptoms without any evidence of stroke He will be discharged back to intermediate this afternoon Imaging and other studies studies: --MRI brain:No acute intracranial abnormality. A chronic lacunar infarct is noted in left basal ganglia. There is minimal microangiopathic disease. There is no hemorrhage or mass effect. There is no restricted diffusion to suggest acute ischemia. Roe-white matter differentiation is preserved. No extra-axial fluid collection is seen. The cerebellar tonsils are normal in configuration. --Head/Neck CTA:There is no hemorrhage, mass effect, or evidence of acute territorial ischemia by CT criteria. There is a 12 mm chronic-appearing lacunar infarct centered in the left basal ganglia. Correlate with the neurological history. If warranted this could be further assessed with MRI.Unremarkable CT angiogram of the brain. Unremarkable CT angiogram of the neck. --ECHO: Normal LV function. Moderate LVH. Normal RV size and function. Intact interatrial septum. Lipo hypertrophy of the interatrial septum. Atrial septum aneurysmal segment. No significant valvular disease. --Normal TSH, B12 levels -- Normal lipid panel --MRI cervical Spine:Motion degraded exam. Straightening of the normal cervical lordosis with multilevel discogenic degeneration and facet arthrosis as above resulting in multilevel neural foraminal narrowing. Mild central canal stenosis at C4-C5 and C6-C7. Normal signal of the cervical spinal cord. --MRI thoracic spine:No significant abnormality within the thoracic spine. --MRI lumbar Spine:No acute process within the lumbar spine by MRI. Overall, mild degenerative disc disease and facet arthrosis within lumbar spine. Mild central canal stenosis at L4-L5. No severe central canal stenosis. Multilevel neural foraminal stenosis, most pronounced at the L4-L5 level, as detailed above. --Homocystine levels pending Concern for somatization disorder Generalized anxiety disorder PTSD Depression Started on Tenex 1 mg at bedtime Effexor dose increased to 25 mg daily Received vitamin B-12 injection. Needs weekly for 4 weeks Appreciate psychiatry input and recommendation Symptomatically better today and will continue current medications as per the psychiatrist Chest pain- History of chronic chest pain Outpatient [facility] cardiology eval contemplated Troponin negative Echo showed no signs of wall motion abnormality Troponins negative this time and No signs of ischemia on EKG NTG PRN Check resting echo-ECHO: Normal LV function. Moderate LVH. Normal RV size and function. Intact interatrial septum. Lipo hypertrophy of the interatrial septum. Atrial septum aneurysmal segment. No significant valvular disease. No more chest pain and/or palpitations and no arrhythmias Elevated D-dimer --CTA:There is no evidence of pulmonary embolus in the main, lobar, or proximal segmental pulmonary arteries. Evaluation of the peripheral branches is significantly degraded by motion artifact. --Venous Doppler:No DVT within the right or left lower extremity. Prediabetes HbA1c 5.8 Lactic acidosis Improved with IV fluids No clear source of infection Hypertension Continue lisinopril, metoprolol Blood pressure is controlled Hyperlipidemia Continue statin as above COPD No signs of exacerbation Continue home inhalers ADHD/Anxiety/Mood disorder Continue home medications We will continue medications as per the psychiatrist DVT Px: Heparin SQ Code Status Full code Disposition [facility] facility as able Will be discharged back to correctional facility this afternoon Admission and Anticipated Discharge Date Admission Date: January 09, 2024 Subjective 01/11/2024 The patient was seen and examined in medical telemetry unit He has been feeling much better but still complains to have loss of vision in the left eye and weakness involving the left sided extremities Denies any chest pain and/or abdominal pain Symptoms of left-sided weakness and visual symptoms are getting better Denies any other significant symptoms Review of Systems Review of Systems: All systems reviewed and are unremarkable except as noted below Physical Exam Physical Exam: Lying in bed without any acute distress Constitutional: well developed, well nourished and + obese; not ill appearing Eyes: PERRL, conjunctivae normal, anicteric sclerae ENMT: external ear and nose normal, oropharynx normal Neck: trachea midline, no thyromegaly Respiratory: no respiratory distress Auscultation: lungs clear to auscultation bilaterally Cardiovascular: Rate/Rhythm: regular rate and regular rhythm; not tachycardic Heart Sounds: normal S1 and normal S2; no murmur Extremities: no edema Gastrointestinal (Abdomen): Inspection/Auscultation: normal bowel sounds; abdomen not distended Percussion/Palpation: abdomen soft; abdomen nontender Musculoskeletal: No acute arthritis involving any of the joint Neurologic: moves all extremities and + focal motor deficit (3/5 power over left side extremities); + abnormal touch/pain/proprioception (Decreased sensation involving the left sided extremities) Psychiatric: No acute anxiety and/or depression Lymphatic: no cervical or axillary lymphadenopathy Results & Data Results & Data Vital Signs (Past 12 Hours) Vital Signs Temp Pulse Pulse Resp BP BP Pulse Ox 01/11/24 07:41 36.5 C 74 16 116/73 96 01/11/24 07:06 72 01/11/24 04:46 36.3 C L 75 20 106/71 94 01/10/24 23:51 78 01/10/24 23:46 36.5 C 76 20 115/69 92 O2 Del Method 01/11/24 07:41 Room Air 01/11/24 07:06 01/11/24 04:46 Room Air 01/10/24 23:51 01/10/24 23:46 Room Air Laboratory Results BMP 01/11/24 08:01 Creatinine 1.12 Medications Administered Current Inpatient Medications Acetaminophen (Acetaminophen 325 Mg Tab) 650 mg PO QID PRN PRN Reason: pain/fever Stop: 02/06/24 20:43 Last Admin: 01/09/24 21:45 Dose: 650 mg Aspirin (Aspirin 81 Mg Ectab) 81 mg PO [facility] Stop: 02/07/24 08:59 Last Admin: 01/11/24 08:57 Dose: 81 mg Atorvastatin Calcium (Atorvastatin 40 Mg Tab) 40 mg PO [facility] Stop: 02/07/24 08:59 Last Admin: 01/11/24 08:58 Dose: 40 mg Clopidogrel Bisulfate (Clopidogrel Bisulfate 75 Mg Tab) 75 mg PO [facility] Stop: 02/08/24 08:59 Last Admin: 01/11/24 08:58 Dose: 75 mg Fluticasone Propionate (Fluticasone Propionate Na Spr 16 Gm Btl) 1 sprays NA BID [facility] Stop: 02/07/24 08:59 Last Admin: 01/11/24 08:58 Dose: 1 sprays Fluticasone/Vilanterol (Fluticasone/Vilanterol 100/25mcg 14 Puffs/Inhaler) 1 puffs INH HS [facility] Stop: 02/07/24 00:59 Last Admin: 01/10/24 21:36 Dose: 1 puffs Guanfacine HCl (Guanfacine Hcl 1 Mg Tab) 1 mg PO HS [facility] Stop: 02/09/24 20:59 Last Admin: 01/10/24 21:34 Dose: 1 mg Heparin Sodium (Porcine) (Heparin Sod 5,000 Unit/0.5 Ml Vial) 5,000 units SQ Q12 [facility] Stop: 02/08/24 08:59 Last Admin: 01/11/24 08:58 Dose: 5,000 units Hydroxyzine HCl (Hydroxyzine Hcl 25 Mg Tab) 50 mg PO BID [facility] Stop: 02/07/24 00:44 Last Admin: 01/11/24 08:59 Dose: 50 mg Promethazine HCl 12.5 mg/ (Sodium Chloride) 50.5 mls @ 202 mls/hr IV Q6H PRN PRN Reason: Nausea And Vomiting Stop: 02/06/24 20:43 Levalbuterol HCl (Levalbuterol Tartrate 15 Gm Hfa.Aer.Ad) 2 puffs INH QID PRN PRN Reason: Shortness Of Breath Or Wheezin Stop: 02/07/24 00:44 Lisinopril (Lisinopril 10 Mg Tab) 10 mg PO DAILY [facility] Stop: 02/08/24 08:59 Last Admin: 01/11/24 09:00 Dose: 10 mg Lorazepam (Lorazepam 0.5 Mg Tab) 0.5 mg PO TID PRN PRN Reason: Anxiety Stop: 02/06/24 20:43 Last Admin: 01/09/24 12:14 Dose: 0.5 mg Metoprolol Tartrate (Metoprolol Tartrate 25 Mg Tab) 25 mg PO BID [facility] Stop: 02/08/24 08:59 Last Admin: 01/11/24 09:01 Dose: 25 mg Nitroglycerin (Nitroglycerin Sl 0.4 Mg/Tab Tab) 0.4 mg SL Q5M PRN PRN Reason: Chest Pain Stop: 02/09/24 10:14 Oxycodone HCl (Oxycodone Hcl Ir 5 Mg Tab (Immediate Release)) 5 mg PO Q4H PRN PRN Reason: Pain Stop: 01/21/24 20:43 Pregabalin (Pregabalin 150 Mg Cap) 150 mg PO BID [facility] Stop: 02/07/24 00:44 Last Admin: 01/11/24 08:59 Dose: 150 mg Trazodone HCl (Trazodone Hcl 100 Mg Tab) 100 mg PO HS [facility] Stop: 02/07/24 00:44 Last Admin: 01/10/24 21:36 Dose: 100 mg Venlafaxine HCl (Venlafaxine Hcl Xr 75 Mg Capxr) 225 mg PO DAILY [facility] Stop: 02/10/24 08:59 Last Admin: 01/11/24 09:59 Dose: 225 mg
--- NOTE | 2024-01-12 08:23 | Discharge Summary ---
Date of Service January 11, 2024 Admission HPI Per Admitting Provider History obtained from patient and records. Medical history significant for hypertension, hyperlipidemia, COPD, GERD, chronic pain, low testosterone as per patient, ADHD, Peyronie's disease, anx iety/mood disorder. Three ER visits since September 2023 for daily chest pain symptoms which patient attributes to SCI provider not prescribing testosterone which he has been on for years before incarceration [facility] contemplated. Patient woke up this afternoon with left-sided weakness and blurred vision left eye. Left side trembling as well. Complaining of right-sided headache symptoms. No prior episodes as per patient. Usual chest pain complaints. Patient denies abdominal pain/black, bloody stools/hematuria symptoms Aspirin given prior to ER transport. Stroke alert called upon arrival at the ER. Medical History as above Surgical History : None Family History : Heart disease, DM Personal/Social history : Non-smoker, no EtOH intake, prior work as an EMT Admission Exam Per Admitting Provider Physical Exam: GENERAL: Anxious, obese, no respiratory distress SKIN: Normal color, warm HEENT: Alopecia, Marianne palpebral conjunctivae, no ptosis, dry buccal mucosa, facial droop when smiling NECK : Supple, no tenderness CHEST : CTA, no tenderness HEART : Tachycardic, no obvious murmurs ABDOMEN: Some distention, nontender RECTAL : Refused EXTREMITIES : No LE swelling/tenderness, no other conspicuous deformities noted NEUROLOGIC : Coherent, flattened left nasolabial fold on smiling, dense hemiparesis left upper extremity and left lower extremity, tremor left hand Principal Diagnosis Acute left-sided weakness, no new stroke, posttraumatic stress disorder, major depression, LACHO, hypertension Discharge Exam Lying in bed without any acute distress Constitutional well developed, well nourished and + obese; not ill appearing Eyes PERRL, conjunctivae normal, anicteric sclerae ENMT external ear and nose normal, oropharynx normal Neck trachea midline, no thyromegaly Respiratory no respiratory distress Auscultation: lungs clear to auscultation bilaterally Cardiovascular Rate/Rhythm: regular rate and regular rhythm; not tachycardic Heart Sounds: normal S1 and normal S2; no murmur Extremities: no edema Gastrointestinal (Abdomen) Inspection/Auscultation: normal bowel sounds; abdomen not distended Percussion/Palpation: abdomen soft; abdomen nontender Neurologic moves all extremities and + focal motor deficit (3/5 power over left side extremities); + abnormal touch/pain/proprioception (Decreased sensation involving the left sided extremities) Lymphatic no cervical or axillary lymphadenopathy Discharge Data Allergies Allergy/AdvReac Type Severity Reaction Status Date / Time aripiprazole [From Abilify] Allergy Unknown ON [facility] Verified 01/07/24 19:09 [facility] pollen extracts Allergy Unknown ON [facility] Verified 01/07/24 19:09 [facility] Consultations 01/07/24 19:14 ED Decision to Admit Stat 01/08/24 00:45 Consult Neurology Routine 01/09/24 15:32 Consult Psychiatry Routine Ordered Studies 01/07/24 17:08 CT angio chest w con Stat CT angio head w con Stat CT angio neck with con Stat CT head/brain wo con Stat 01/07/24 18:27 MR brain wo con Stat 01/08/24 12:23 MR lumbar spine wo/w con Urgent 01/09/24 00:00 MR cervical spine wo/w con Urgent MR thoracic spine wo/w con Urgent 01/09/24 07:50 US venous doppler LE Routine Hospital Course (1) Acute left-sided weakness: Strokelike symptoms with history of Prior CVA--patient unaware of history No new stroke identified on relevant investigations as below DD: Malingering/conversion disorder Left-sided weakness have been improving Left eye visual symptoms have been improving to Appreciate neurology input and recommendation_ --Needs Zio patch as outpatient --Continue dual antiplatelet therapy for 3 weeks and then transition to aspirin 81 mg daily only --Continue statin Remains medically stable with improvement of current strokelike symptoms without any evidence of stroke He will be discharged back to jail this afternoon Imaging and other studies studies: --MRI brain:No acute intracranial abnormality. A chronic lacunar infarct is noted in left basal ganglia. There is minimal microangiopathic disease. There is no hemorrhage or mass effect. There is no restricted diffusion to suggest acute ischemia. Roe-white matter differentiation is preserved. No extra-axial fluid collection is seen. The cerebellar tonsils are normal in configuration. --Head/Neck CTA:There is no hemorrhage, mass effect, or evidence of acute territorial ischemia by CT criteria. There is a 12 mm chronic-appearing lacunar infarct centered in the left basal ganglia. Correlate with the neurological history. If warranted this could be further assessed with MRI.Unremarkable CT angiogram of the brain. Unremarkable CT angiogram of the neck. --ECHO: Normal LV function. Moderate LVH. Normal RV size and function. Intact interatrial septum. Lipo hypertrophy of the interatrial septum. Atrial septum aneurysmal segment. No significant valvular disease. --Normal TSH, B12 levels -- Normal lipid panel --MRI cervical Spine:Motion degraded exam. Straightening of the normal cervical lordosis with multilevel discogenic degeneration and facet arthrosis as above resulting in multilevel neural foraminal narrowing. Mild central canal stenosis at C4-C5 and C6-C7. Normal signal of the cervical spinal cord. --MRI thoracic spine:No significant abnormality within the thoracic spine. --MRI lumbar Spine:No acute process within the lumbar spine by MRI. Overall, mild degenerative disc disease and facet arthrosis within lumbar spine. Mild central canal stenosis at L4-L5. No severe central canal stenosis. Multilevel neural foraminal stenosis, most pronounced at the L4-L5 level, as detailed above. --Homocystine levels pending Concern for somatization disorder Generalized anxiety disorder PTSD Depression Started on Tenex 1 mg at bedtime Effexor dose increased to 25 mg daily Received vitamin B-12 injection. Needs weekly for 4 weeks Appreciate psychiatry input and recommendation Symptomatically better today and will continue current medications as per the psychiatrist Chest pain- History of chronic chest pain [facility] [place] eval contemplated Troponin negative Echo showed no signs of wall motion abnormality Troponins negative this time and No signs of ischemia on EKG NTG PRN Check resting echo-ECHO: Normal LV function. Moderate LVH. Normal RV size and function. Intact interatrial septum. Lipo hypertrophy of the interatrial septum. Atrial septum aneurysmal segment. No significant valvular disease. No more chest pain and/or palpitations and no arrhythmias Elevated D-dimer --CTA:There is no evidence of pulmonary embolus in the main, lobar, or proximal segmental pulmonary arteries. Evaluation of the peripheral branches is significantly degraded by motion artifact. --Venous Doppler:No DVT within the right or left lower extremity. Prediabetes HbA1c 5.8 Lactic acidosis Improved with IV fluids No clear source of infection Hypertension Continue lisinopril, metoprolol Blood pressure is controlled Hyperlipidemia Continue statin as above COPD No signs of exacerbation Continue home inhalers ADHD/Anxiety/Mood disorder Continue home medications We will continue medications as per the psychiatrist DVT Px: Heparin SQ Code Status Full code Disposition Correctional facility as able Will be discharged back to correctional facility this afternoon Total Time Total Time Spent Total Time Spent (In Minutes): 35 minutes Discharge Plan Discharge Items Patient Disposition: Correctional Facility Reason For Visit: L SIDED WEAKNESS Discharge Diagnosis: Acute left-sided weakness, no new stroke, posttraumatic stress disorder, major depression, LACHO, hypertension Condition on Discharge: Good Activity: Resume your previous activity Non-emergency contact: Primary Care Provider Call non-emergency contact if: you have any medication questions and your symptoms worsen Follow-up/Referrals: Elvia CAVAZOS [Primary Care Provider] - Diet: Heart Healthy Addtl Attending Provider Instructions: Please take precautions to avoid falls Take your medications as advised: You will need to take aspirin and Plavix for 19 days and after that continue only with aspirin. You need to have vitamin B12 1000 mcg IM every week for next 4 weeks and your Effexor has been increased to 225 mg every morning And of the new medications will be Tenex 1 mg p.o. twice daily Recommended to have Zio patch placement as an outpatient Will need to have outpatient neurological follow-up as well in about 4 to 6 weeks Pending Studies at Discharge: No Stand-Alone Forms: My [employer], Medications to Prevent Stroke Skilled Items Patient informed of condition?: Yes Discharge Level of Care: Other Communicable Disease: No Discharge Prognosis: Improving Lines: None Urinary Catheter: No Medications and DC Order Prescriptions: New atorvastatin 40 mg Tablet 40 mg PO QAM Qty: 30 0RF venlafaxine 75 mg Capsule,Extended Release 24hr 225 mg PO DAILY Qty: 90 0RF clopidogrel 75 mg Tablet 75 mg PO QAM Qty: 19 0RF aspirin 81 mg Tablet,Delayed Release (Dr/Ec) 81 mg PO QAM Qty: 30 0RF guanfacine 1 mg Tablet 1 mg PO BID Qty: 60 0RF mecobalamin (vitamin B12) 10,000 mcg recon soln 1,000 mcg IM .qweek Qty: 4 0RF Rx Instructions: Weekly for 4 weeks Continued metoprolol tartrate 25 mg Tablet 25 mg PO DAILY Rx Instructions: HOLD FOR BP <100/60 OR PULSE <60 hydroxyzine pamoate 50 mg Capsule 50 mg PO BID terbinafine HCl 1 % Cream 1 applic TOPICAL BID trazodone 100 mg Tablet 100 mg PO HS lisinopril 10 mg Tablet 10 mg PO DAILY levalbuterol tartrate [Xopenex HFA] 45 mcg/actuation Hfa Aerosol Inhaler 2 inh INHALATION QID PRN (Reason: Shortness Of Breath Or Wheezing) pregabalin [Lyrica] 150 mg Capsule 150 mg PO BID fluticasone propion-salmeterol [Wixela Inhub] 500-50 mcg/dose Blister With Device 1 inh INHALATION BID Fluticasone Nasal Spr 0.05% 1 spray intranasal BID Discontinued venlafaxine [Effexor XR] 150 mg Capsule,Extended Release 24hr 150 mg PO DAILY Discharge Orders: Discharge Order (Routine); Ordered 01/11/24 Ordered By: Bernice Mora Admission Data Admit Date/Time: 01/09/24 14:12 Attending Provider: Bernice Mora Admit Provider: Deo Lawler Primary Care Provider: Elvia CAVAZOS Other Providers: Deo Lawler; Belén Ordonez; Loc Tolentino; Dallas De La Torre Jr; Chinyere Leone; Fatmata Simms; Peter Orantes Other Interventions: Discharge Summary Assessment (RN) Last Done: 01/11/24 15:33
[2024-01-13 14:32] LABS: MDA negative; MDEA negative; MDMA (Ecstasy) Urine, Confirm negative
== END 2024-01-11 16:17 | DRG 57 ==
LOC: 2N 17:11 → ED 17:11 → 2N 01-08 00:44 → SUATTDRO 01-09 14:12